=== PATIENT | male | born 1940 | race Caucasian/White ===

== ENCOUNTER 2022-11-22 15:37 | Inpatient (IN) ==
--- NOTE | 2022-11-22 16:56 | Emergency Department Note ---
Fall HPI General Chief Complaint: Fall Stated Complaint: fall Time Seen by Provider: 11/22/22 16:56 Source: family Mode of arrival: wheelchair Limitations: no limitations History of Present Illness HPI Narrative: Narrative: Patient is an 82-year-old male who presents to the emergency department today with complaint of left hip pain that he describes as throbbing and sharp pain. He was walking in his garage at home when he had a mechanical ground-level fall and tripped falling backwards onto a cement step. He has had pain to his hip since he fell at approximately 1430 today. He denies hitting his head, losing consciousness, or any pain in any other part of his body today. He has not had any numbness or tingling. He has not noticed any redness or bruising. Pain is aggravated with any weightbearing and he is not able to bear weight without significant pain. He currently rates his pain 4 out of 10 on a 0-10 numerical pain scale. He declines needing any pain medication upon arrival to the emergency department. Related Data Home Medications Medication Instructions Recorded Confirmed aspirin 325 mg tablet,delayed 325 mg PO QDAY 03/21/15 11/22/22 release cholecalciferol (vitamin D3) 125 5,000 unit PO QDAY 03/21/15 11/22/22 mcg (5,000 unit) tablet alpha lipioc acid 1 dose PO DAILY 06/01/15 11/22/22 coenzyme Q10 400 mg capsule 400 mg PO QDAY 06/01/15 11/22/22 vitamin B complex (B 1 tab-cap PO QDAY 11/22/15 11/22/22 Complex-Vitamin B12 tablet) gabapentin 100 mg capsule 300 mg PO TID 01/19/19 11/22/22 Custom Foot Orthotic 1 dose PRN PRN Pain 03/06/20 11/22/22 Tamsulosin 0.4 mg PO DAILY 03/06/20 11/22/22 omeprazole 40 mg capsule,delayed 40 mg PO QDAY PRN Indigestion 01/30/21 11/22/22 release Previous Rx's Medication Instructions Recorded amlodipine 10 mg tablet 10 mg PO QDAY #90 tabs 12/10/20 atorvastatin 20 mg tablet See Rx Instructions .Route 08/20/21 .COMPLEX #90 tabs acyclovir 200 mg capsule See Rx Instructions .Route 06/27/22 .COMPLEX #90 caps levothyroxine 150 mcg tablet 150 mcg PO QDAY #90 tabs 03/24/22 lisinopril 20 See Rx Instructions .Route 03/24/22 mg-hydrochlorothiazide 12.5 mg .COMPLEX #90 tabs tablet warfarin 4 mg tablet 4 mg PO QDAY #90 tabs 06/20/22 Allergies Allergy/AdvReac Type Severity Reaction Status Date / Time ciprofloxacin [From Cipro] Allergy Intermediate weakness, Verified 11/19/22 14:27 fatigue Review of Systems ROS ROS Narrative: Narrative: All systems ED: reviewed and negative except as stated. [facility] Narrative Patient History Narrative: Narrative: Medical/Surgical/Family History All Active Problems (Updated 11/22/22 @ 21:54 by OCTAVIANO Nickerson) Closed left hip fracture (Acute) Fracture, intertrochanteric, left femur (Acute) Medicare annual wellness visit, subsequent (Acute) Knee sprain (Acute) Minor head injury (Acute) Hematoma of left thigh (Acute) Traumatic hematoma of hand (Acute) Urinary tract infection (Acute) Urinary retention (Acute) [facility] current use of anticoagulant therapy (Chronic) Appendicitis (Acute) TIA (transient ischemic attack) (Acute) Occipital scalp laceration (Acute) Head injury due to trauma (Acute) Fall (Acute) Elevated Prostate Specific Antigen (PSA) (Chronic) Peripheral neuropathy (Chronic) Hypothyroidism (acquired) (Chronic) Hypertension, essential (Chronic) Hyperlipidemia (Chronic) Gastroesophageal reflux (Chronic) Medical History Appendicitis Diverticulosis of colon Elevated Prostate Specific Antigen (PSA) PSA from 01/26/15 is 6.13. Fall Gastroesophageal reflux Head injury due to trauma Hiatal hernia Hyperlipidemia Hypertension, essential well-controlled with blood pressures under 140/90 Hypothyroidism (acquired) well-controlled on 150 g of levothyroxine. 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 numbness TIA (transient ischemic attack) Surgical History History of colonoscopy (10/30/08) History of esophagogastroduodenoscopy (10/10/08) also on 01/08/2009 History of tonsillectomy S/P appendectomy (11/21/15) Family History Father Diabetes mellitus GF is unspecified family side Grandfather (paternal) Diabetes mellitus NOS Social History Smoking Status: Former smoker Alcohol Intake Frequency: does not drink Substance Use: does not use Exam Narrative Narrative: Narrative: General Limitations: no limitations General appearance: Present alert and in no apparent distress Head Head: Present atraumatic, normocephalic and normal inspection Eye Eye: Present normal appearance; Absent scleral icterus ENT ENT: Present normal oropharynx and mucous membranes moist Respiratory Respiratory: Absent respiratory distress or rales/crackles Extremities Extremities: Present normal capillary refill and other (Tenderness with palpation on the lateral side of left hip. Normal sensation to the lower extremity. No ecchymosis or erythema. Internal rotation without shortening. Pedal pulse 2+.); Absent cyanosis Skin Skin: Present warm (WNL), dry and normal color Course Vital Signs Vital signs: Vital Signs Temperature 97.7 F 11/22/22 15:38 Pulse Rate 62 11/22/22 15:38 Respiratory Rate 17 11/22/22 15:38 Blood Pressure 156/80 11/22/22 15:38 Pulse Oximetry (%) 95 11/22/22 15:38 Oxygen Delivery Method Room Air 11/22/22 15:38 Temperature 97.7 F 11/22/22 15:38 Pulse Rate 80 11/22/22 21:16 Respiratory Rate 17 11/22/22 15:38 Blood Pressure 111/71 11/22/22 21:16 Pulse Oximetry (%) 96 11/22/22 21:16 Oxygen Delivery Method Room Air 11/22/22 15:38 MDM MDM Narrative Medical decision making narrative: Narrative: Patient is an 82-year-old male who came into the emergency department today with left hip pain after he had a mechanical ground-level fall this afternoon at approximately 1500 while he was at home. X-ray obtained today that shows a left intertrochanteric fracture and has fairly good alignment. Patient was having pain and therefore proceeded with 0.5 mg of IV Dilaudid and 5 mg of methocarbamol as patient was having muscle spasm to the thigh causing increased pain. Patient was ordered a 500 mL NS bolus IV and the rate was changed to 125 an hour. Patient has past medical history of TIA and takes warfarin. Patient last ate at 8 AM where he had some breakfast cereal and drink 2 small sips of Pepsi around [address] Whitman is on-call for orthopedics and plans on surgical intervention with patient to treat the hip fracture. Currently there is no bed available for hospital admission to [facility] this evening. There is anticipation for hospital availability tomorrow morning where Dr. Whitman plans on performing surgery here at [facility] tomorrow morning after holding Coumadin dose and he requested hospitalist consultation. Dr. Goldstein is on for hospitalist service today and he did come down and evaluate patient today. Dr. Goldstein did accept patient for hospital admission today. Patient currently will be monitored here in the emergency department until tomorrow morning and plan on going to surgery in the morning and admission to [facility] after surgery. Lab Data 11/22/22 18:09 11/22/22 18:09 Labs: Lab Results 11/22/22 11/22/22 11/22/22 Range/Units 18:09 18:09 18:14 WBC 12.5 H (4.5-11.0) K/mcL RBC 3.83 L (4.63-6.08) M/mcL Hgb 12.6 L (13.7-17.5) g/dL Hct 37.3 L (40.1-51.0) % MCV 97.4 (80.0-100.0) fL MCH 32.9 (26.0-34.0) pg MCHC 33.8 (31.0-36.0) g/dL RDW 12.7 (11.5-14.5) % Plt Count 283 (140-440) K/mcL MPV 10.6 (8.8-12.5) fL Immature Gran % (Auto) 1.0 H (0.0-0.5) % Neut % (Auto) 85.9 H (38.0-78.0) % Lymph % (Auto) 5.6 L (15.5-49.0) % [place] % (Auto) 5.8 (1.0-12.0) % Eos % (Auto) 1.4 (0.0-7.0) % Baso % (Auto) 0.3 (0.0-2.0) % Lymph # (Auto) 0.70 L (1.50-4.80) K/mcL [place] # (Auto) 0.72 (0.10-0.90) K/mcL Eos # (Auto) 0.17 (0.00-0.70) K/mcL Baso # (Auto) 0.04 (0.00-0.30) K/mcL Immature Gran # 0.13 H (0.00-0.05) K/mcl Absolute Neutrophils 10.76 H (1.80-8.00) K/mcL POC PT 26.7 H (11.9-14.5) POC INR 2.3 H (0.8-1.2) Sodium 132 L (133-145) mmol/L Potassium 4.2 (3.3-5.1) mmol/L Chloride 98 (96-108) mmol/L Carbon Dioxide 22 (22-30) mmol/L Anion Gap 12.0 (8.0-16.0) BUN 35 H (8-23) mg/dL Creatinine 1.5 H (0.7-1.2) mg/dL GFR Calculation 42 Glucose 100 (70-105) mg/dL Calcium 9.1 (8.6-10.4) mg/dL Total Bilirubin 0.6 (0.1-1.0) mg/dL AST 15 (<40) U/L ALT 11 (<40) U/L Alkaline Phosphatase 86 (39-117) U/L Total Protein 6.9 (5.9-8.4) gm/dL Albumin 4.1 (3.2-5.2) gm/dL Globulin 2.8 (2.2-3.7) gm/dL Albumin/Globulin Ratio 1.5 (1.0-2.3) Radiology Data Radiology results reviewed: Yes I reviewed the patient's radiology results. Radiology results narrative: Ordering Physician:Chung Horne Date of Service:11/22/22 Procedure(s):XR hip LT comp 2VW HISTORY: Fell with left hip injury FINDINGS: There is an acute intertrochanteric fracture of the left proximal femur. Crosstable lateral view shows mild volar angulation. There is no significant impaction. The femoral neck and head are normal. Hip joint space is normal in width. Mild joint space narrowing is present in the right hip. IMPRESSION: Intertrochanteric fracture of the left hip Interpreted and Authenticated by: Simone Chung 11/22/22 EKG Data EKG #1: EKG attestation: Yes I reviewed and interpreted this EKG. and Yes There are no EKG findings of acute coronary syndrome EKG shows normal: sinus rhythm Rate: normal Discharge Plan Patient/Caregiver Discharge Instructions Pt seen by ENGROSSER/PA only: No Clinical Impression: Closed left hip fracture Patient Disposition: Xfer As Inpt ([facility]) Follow up with: Patric Juárez PA-C [Primary Care Provider] - Gavin Whitman MD [Physician] - Prescriptions: No Action amlodipine 10 mg tablet 10 mg PO QDAY Qty: 90 3RF atorvastatin 20 mg tablet See Rx Instructions .ROUTE .COMPLEX Qty: 90 3RF Dose Instruction: TAKE 1 TABLET BY MOUTH AT BEDTIME Rx Instructions: TAKE 1 TABLET BY MOUTH AT BEDTIME lisinopril-hydrochlorothiazide 20-12.5 mg tablet See Rx Instructions .ROUTE .COMPLEX Qty: 90 3RF Dose Instruction: TAKE 1 TABLET BY MOUTH DAILY Rx Instructions: TAKE 1 TABLET BY MOUTH DAILY levothyroxine 150 mcg tablet 150 mcg PO QDAY Qty: 90 3RF acyclovir 200 mg capsule See Rx Instructions .ROUTE .COMPLEX Qty: 90 3RF Dose Instruction: TAKE 1 CAPSULE BY MOUTH DAILY NEEDED FOR COLD SORES Rx Instructions: TAKE 1 CAPSULE BY MOUTH DAILY NEEDED FOR COLD SORES warfarin 4 mg tablet 4 mg PO QDAY Qty: 90 2RF Protocol: Dose Management Protocol Text: Patient Instructed to take: warfarin 4 mg (1 Tab) on , , , , , FR, SA Additional Instructions: per order of patric juárez aspirin 325 mg tablet,delayed release (DR/EC) 325 mg PO QDAY cholecalciferol (vitamin D3) 5,000 unit tablet 5,000 unit PO QDAY Rx Instructions: administer with meals vitamin B complex [B Complex-Vitamin B12] tablet 1 tab-cap PO QDAY coenzyme Q10 400 mg capsule 400 mg PO QDAY alpha lipioc acid 1 dose PO DAILY Patient Comments: 600mg daily gabapentin 100 mg capsule 300 mg PO TID omeprazole 40 mg capsule,delayed release(DR/EC) 40 mg PO QDAY PRN (Reason: Indigestion) Rx Instructions: swallow whole OR open & sprinkle contents over tbsp applesauce; swallow all immediately/do not chew Custom Foot Orthotic 1 dose PRN PRN (Reason: Pain) Rx Instructions: Please fit for custom foot orthotics Tamsulosin 0.4 mg PO DAILY
[2022-11-22] MEDS ORDERED: CYCLOBENZAPRINE 10 MG TABLET PO ONE ×2 (17:43→21:51)
--- NOTE | 2022-11-22 17:47 | XRay Report ---
HISTORY: Fell with left hip injury FINDINGS: There is an acute intertrochanteric fracture of the left proximal femur. Crosstable lateral view shows mild volar angulation. There is no significant impaction. The femoral neck and head are normal. Hip joint space is normal in width. Mild joint space narrowing is present in the right hip. IMPRESSION: Intertrochanteric fracture of the left hip Interpreted and Authenticated by: Simone Chung 11/22/22
[2022-11-22 18:18] LABS: POC INR 2.3 (0.8-1.2); POC Pro Time 26.7 (11.9-14.5)
[2022-11-22 18:38] LABS: Basophils # (Auto) 0.04 K/mcL (0.00-0.30); Basophils % (Auto) 0.3 % (0.0-2.0); Eosinophils # (Auto) 0.17 K/mcL (0.00-0.70); Eosinophils % (Auto) 1.4 % (0.0-7.0); Hematocrit 37.3 % (40.1-51.0); Hemoglobin 12.6 g/dL (13.7-17.5); Lymphocytes % (Auto) 5.6 % (15.5-49.0); Mean Cell Volume 97.4 fL (80.0-100.0); Mean Corpuscular HGB Conc 33.8 g/dL (31.0-36.0); Mean Platelet Volume 10.6 fL (8.8-12.5); Monocytes # (Auto) 0.72 K/mcL (0.10-0.90); Monocytes % (Auto) 5.8 % (1.0-12.0); Neutrophils % (Auto) 85.9 % (38.0-78.0); Platelet Count 283 K/mcL (140-440); RBC 3.83 M/mcL (4.63-6.08); Red Cell Distribution Width 12.7 % (11.5-14.5); WBC 12.5 K/mcL (4.5-11.0)
[2022-11-22 18:57] LABS: ALT/SGPT 11 U/L (<40); AST/SGOT 15 U/L (<40); Albumin 4.1 gm/dL (3.2-5.2); Albumin/Globulin Ratio 1.5 (1.0-2.3); Alkaline Phosphatase 86 U/L (39-117); Bilirubin,Total 0.6 mg/dL (0.1-1.0); Blood Urea Nitrogen 35 mg/dL (8-23); Calcium 9.1 mg/dL (8.6-10.4); Carbon Dioxide 22 mmol/L (22-30); Chloride 98 mmol/L (96-108); Globulin 2.8 gm/dL (2.2-3.7); Glomerular Filtration Rate 42; Glucose 100 mg/dL (70-105)
[2022-11-22] MEDS: 0.9 % SODIUM CHLORIDE 1,000 ML IV ONE ×2 (19:37→20:02)
[2022-11-22] MEDS: HYDROmorphone 0.5 MG/0.5 ML SYRINGE IV PRN ×2 (19:44→23:27)
[2022-11-22] MEDS ORDERED: 0.9 % SODIUM CHLORIDE 500 ML IV ONE (19:57)
--- NOTE | 2022-11-22 21:20 | Internal Med History&Physical ---
HPI History of Present Illness Patient information: Note initiated : 11/22/22 at 9:18 pm Service Date, if different from initiated Date: [] Patient: Timmy Kwon 82 y/o M admitted on for fall. Chief Complaint: [fall] Chief complaint: fall History of present illness: Mr. Kwon is a 82 year old M history of essential hypertensions, dyslipidemia, TIA on Coumadin, hypothyroidism, prostate cancer status post radia tion therapy, presenting with mechanical fall with left hip fracture. There is no prior history of mechanical fall. 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 He did not hit his head. He did not loss consciousness. He was complaining of severe left hip pain and was unable to get up by himself. He called his daughter who managed to get patient in the truck with assistance from other family member to our ED for further evaluations. Hip x-ray showing into trochanteric fracture of the left hip. Orthopedic surgeon Dr. Whitman was notified about the patient, and medical consultation is requested for pre-operative risk stratification and medical management. Constitutional Constitutional: Absent chills, excessive sweating, fatigue, fever(s) or weakness EENT Eyes: Absent blurry vision, change in vision, loss of vision or other visual disturbances Ears: Absent decreased hearing or tinnitus Nose, mouth and throat: Absent abnormal hearing, dry mouth, headache(s), nasal congestion or sore throat Cardiovascular Cardiovascular: Absent chest pain, chest pain at rest, edema, irregular heart rhythm or palpatations Respiratory Respiratory: Absent cough, dyspnea or wheezing Gastrointestinal Gastrointestinal: Absent abdominal pain, constipation, diarrhea, nausea or vomiting Musculoskeletal Musculoskeletal: Absent back pain, deformity, limited range of motion, muscle cramps, muscle weakness or numbness Additional comments: Left hip pain Integumentary Integumentary: Absent lesions, rash or wounds Neurological Neurological: Absent focal weakness, headache(s) or numbness Psychiatric Psychiatric: Absent anxiety, depression or hallucinations PFSH PFS All Active Problems (Updated 11/22/22 @ 21:22 by Jamal Goldstein MD) Fracture, intertrochanteric, left femur (Acute) Medicare annual wellness visit, subsequent (Acute) Knee sprain (Acute) Minor head injury (Acute) Hematoma of left thigh (Acute) Traumatic hematoma of hand (Acute) Urinary tract infection (Acute) Urinary retention (Acute) 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 Fall Gastroesophageal reflux Head injury due to trauma Hiatal hernia Hyperlipidemia Hypertension, essential well-controlled with blood pressures under 140/90 Hypothyroidism (acquired) well-controlled on 150 g of levothyroxine. 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 numbness TIA (transient ischemic attack) Surgical History History of colonoscopy (10/30/08) History of esophagogastroduodenoscopy (10/10/08) also on 01/08/2009 History of tonsillectomy S/P appendectomy (11/21/15) Family History Father Diabetes mellitus GF is unspecified family side Grandfather (paternal) Diabetes mellitus NOS Social History adopted: No caregiver/support person: No foster care: No household members: alone housing: house lives independently: Yes marital status: education level: college service: No group home: No occupational status: retired pets and animals: Yes pets and animals: dog(s), horse(s) and other details: goat hx recent travel: No sexually active: Yes well-balanced diet: daily or most days physical activity: walking, aerobics and weight training smoking status: Former smoker alcohol intake frequency: does not drink substance use type: does not use special jemima needs: No victim of physical abuse: No victim of emotional abuse: No victim of sexual abuse: No MEDS/ALLERGIES Home Medications and Allergies Home Medications Medication Instructions Recorded Confirmed Type aspirin 325 mg tablet,delayed 325 mg PO QDAY 03/21/15 11/22/22 History release cholecalciferol (vitamin D3) 125 5,000 unit PO QDAY 03/21/15 11/22/22 History mcg (5,000 unit) tablet alpha lipioc acid 1 dose PO DAILY 06/01/15 11/22/22 History coenzyme Q10 400 mg capsule 400 mg PO QDAY 06/01/15 11/22/22 History vitamin B complex (B 1 tab-cap PO QDAY 11/22/15 11/22/22 History Complex-Vitamin B12 tablet) gabapentin 100 mg capsule 300 mg PO TID 01/19/19 11/22/22 History Custom Foot Orthotic 1 dose PRN PRN Pain 03/06/20 11/22/22 History Tamsulosin 0.4 mg PO DAILY 03/06/20 11/22/22 History amlodipine 10 mg tablet 10 mg PO QDAY #90 tabs 12/10/20 11/22/22 Rx omeprazole 40 mg capsule,delayed 40 mg PO QDAY PRN Indigestion 01/30/21 11/22/22 History release atorvastatin 20 mg tablet See Rx Instructions .Route 08/20/21 11/22/22 Rx .COMPLEX #90 tabs acyclovir 200 mg capsule See Rx Instructions .Route 03/24/22 11/22/22 Rx .COMPLEX #90 caps levothyroxine 150 mcg tablet 150 mcg PO QDAY #90 tabs 03/24/22 11/22/22 Rx lisinopril 20 See Rx Instructions .Route 03/24/22 11/22/22 Rx mg-hydrochlorothiazide 12.5 mg .COMPLEX #90 tabs tablet warfarin 4 mg tablet 4 mg PO QDAY #90 tabs 06/20/22 11/22/22 Rx Allergies Allergy/AdvReac Type Severity Reaction Status Date / Time ciprofloxacin [From Cipro] Allergy Intermediate weakness, Verified 11/19/22 14:27 fatigue EXAM Constitutional Vitals: Temp Pulse Resp BP Pulse Ox O2 Del Method 36.5 C 80 17 111/71 96 Room Air 11/22/22 15:38 11/22/22 21:16 11/22/22 15:38 11/22/22 21:16 11/22/22 21:16 11/22/22 15:38 General appearance: cooperative and no acute distress Head Head exam: Present atraumatic and normocephalic Eye Eye exam: Present EOMI and PERRL ENT ENT exam: Present mucous membranes moist, normal exam and normal external ear exam Neck Neck exam: Present normal inspection; Absent lymphadenopathy, tenderness or thyromegaly Respiratory Respiratory exam: Absent accessory muscle use, respiratory distress or wheezes Cardiovascular Cardiovascular exam: Present normal rate and rhythm; Absent JVD GI/Abdominal GI/Abdominal exam: Present normal bowel sounds and soft; Absent organomegaly or tenderness Rectal Rectal exam: Present deferred Extremities Exam Extremities exam: Present normal capillary refill and tenderness; Absent full ROM or normal inspection Additional comments: Left hip active and passive ROMs limited by pain Neurological Exam Neurological exam: Present alert, CN II-XII intact and oriented X3; Absent motor sensory deficit Psychiatric Psychiatric exam: Present normal affect and normal mood; Absent anxious or depressed Skin Skin exam: Present dry and intact DATA Data Completed and Pending Labs: Labs from last 24 hours 11/22/22 11/22/22 11/22/22 18:14 18:09 18:09 WBC 12.5 H RBC 3.83 L Hgb 12.6 L Hct 37.3 L MCV 97.4 MCH 32.9 MCHC 33.8 RDW 12.7 Plt Count 283 MPV 10.6 Immature Gran % (Auto) 1.0 H Neut % (Auto) 85.9 H Lymph % (Auto) 5.6 L [place] % (Auto) 5.8 Eos % (Auto) 1.4 Baso % (Auto) 0.3 Lymph # (Auto) 0.70 L [place] # (Auto) 0.72 Eos # (Auto) 0.17 Baso # (Auto) 0.04 Immature Gran # 0.13 H Absolute Neutrophils 10.76 H POC PT 26.7 H POC INR 2.3 H Sodium 132 L Potassium 4.2 Chloride 98 Carbon Dioxide 22 Anion Gap 12.0 BUN 35 H Creatinine 1.5 H GFR Calculation 42 Glucose 100 Calcium 9.1 Total Bilirubin 0.6 AST 15 ALT 11 Alkaline Phosphatase 86 Total Protein 6.9 Albumin 4.1 Globulin 2.8 Albumin/Globulin Ratio 1.5 A/P Assessment and plan (1) Fracture, intertrochanteric, left femur: Status: Acute (2) Hypothyroidism (acquired): Status: Chronic Comment: well-controlled on 150 g of levothyroxine. (3) Hypertension, essential: Status: Chronic Comment: well-controlled with blood pressures under 140/90 (4) Hyperlipidemia: Status: Chronic Qualifiers: Hyperlipidemia type: mixed hyperlipidemia Qualified Code(s): E78.2 - Mixed hyperlipidemia (5) TIA (transient ischemic attack): Status: Acute Qualifiers: Transient cerebral ischemia type: unspecified Qualified Code(s): G45.9 - Transient cerebral ischemic attack, unspecified (6) [facility] current use of anticoagulant therapy: Status: Chronic Narrative A/P Narrative: Assessment and Plans: 1. Left intertrochanteric hip fracture: Inpatient med surg Dr. Rivera to perform surgical fixaton on 11/23 NPO after midnight with IV fluid Hold Aspirin Hold Coumadin; repeat PT/INR in the morning Bedrest Tylenol Oxycodone Dilaudid Physical therapy 2. Essential hypertension: Lisinopril Amlodipine 3. Dyslipidemia: Lipitor 4. Hypothyroidism: Continue thyroid replacement therapy 5. h/o TIA: Hold Aspirin Hold Coumadin; repeat PT/INR in the morning Continue Lipitor GI ppx: not currently indicated DVT ppx: SCDs Code status: Full Prognosis: guarded Disposition: inpatient med surg; PT Time Spent With Patient Time: Total time spent is greater than 50% in coordination of care (as documented) at patient's floor/unit and/or counseling patient: Initial: Total time with patient: 55 - 74 minutes
[2022-11-22 21:59] LABS: Appearance,Urine CLOUDY (Clear); Bacteria,Urine FEW /hpf (0); Bilirubin,Urine Negative (Negative); Color,Urine YELLOW; Culture Indicated,Urine yes; Glucose,Urine (UA) Negative (Negative); Ketones,Urine Negative (Negative); Leukocyte Esterase,Urine 75 /uL (Negative); Mucus,Urine FEW /hpf; Nitrate,Urine Negative (Negative); Protein,Urine Negative (Negative); Specific Gravity,Urine 1.013 (1.000-1.035); Urine RBC 41 /hpf (0-3); Urine Squamous Epithelial Cell 0 /hpf (0-4); Urine WBC 22 /hpf (0-4); Urobilinogen,Urine Negative
[2022-11-23] MEDS: 0.9 % SODIUM CHLORIDE 1,000 ML IV SCH ×5 (01:10→20:48)
[2022-11-23] MEDS: HYDROmorphone 0.5 MG/0.5 ML SYRINGE IV PRN (06:58)
[2022-11-23 07:29] LABS: Prothrombin Time 23.5 sec (11.9-14.5)
[2022-11-23] MEDS ORDERED: OMEPRAZOLE 20 MG CAPSULE PO PRN (07:31)
[2022-11-23] MEDS ORDERED: ceFAZolin 1 GM VIAL ONE ×3 (07:59→23:33)
[2022-11-23] MEDS ORDERED: ceFAZolin 2 GM in DEXTROSE 5% IN WATER 50 ML IV SCH ×2 (08:00→09:00)
[2022-11-23] MEDS ORDERED: ceFAZolin 1 GM VIAL IV ONE (08:09)
[2022-11-23] MEDS ORDERED: DEXAMETHASONE 10 MG/ML VIAL ONE (08:15)
[2022-11-23] MEDS ORDERED: TRANEXAMIC ACID 1,000 MG/10 ML VIAL ONE (08:15)
[2022-11-23] MEDS ORDERED: ePHEDrine 50 MG/5 ML SYRINGE (ANEST) IV ONE (08:15)
[2022-11-23] MEDS ORDERED: LIDOCAINE HCL/PF 100 MG/5 ML SYRINGE IV ONE (08:15)
[2022-11-23] MEDS ORDERED: MAGNESIUM SULFATE 2 GM/50 ML BAG IV ONE (08:15)
[2022-11-23] MEDS ORDERED: ONDANSETRON 4 MG/2 ML VIAL ONE (08:15)
[2022-11-23] MEDS ORDERED: KETAMINE 50 MG/ML Syringe (ANEST) IV ONE (08:15)
[2022-11-23] MEDS ORDERED: PHENYLephrine 1 MG/10 ML SYRINGE (ANEST) ONE (08:15)
[2022-11-23] MEDS ORDERED: PROPOFOL 200 MG/20 ML VIAL IV ONE (08:15)
[2022-11-23] MEDS ORDERED: LACTATED RINGERS 250 ML IV PRN (08:48)
[2022-11-23] MEDS ORDERED: diphenhydrAMINE 50 MG/ML VIAL IV PRN (08:48)
[2022-11-23] MEDS ORDERED: IPRATROPIUM/ALBUTEROL 3 ML AMPUL.NEB NEB PRN ×2 (08:48→11:06)
[2022-11-23] MEDS ORDERED: ACETAMINOPHEN 1,000 MG/100 ML BAG IV ONE (08:48)
[2022-11-23] MEDS ORDERED: fentaNYL 100 MCG/2 ML VIAL IV PRN (08:48)
[2022-11-23] MEDS ORDERED: NALOXONE HCL 0.4 MG/ML VIAL IV PRN (08:48)
[2022-11-23] MEDS ORDERED: PROMETHAZINE 25 MG/ML VIAL IV PRN (08:48)
[2022-11-23] MEDS ORDERED: METHOCARBAMOL 1,000 MG/10 ML VIAL IV PRN (08:48)
[2022-11-23] MEDS ORDERED: ONDANSETRON 4 MG/2 ML VIAL IV PRN ×2 (08:48→11:06)
[2022-11-23] MEDS ORDERED: morphine 4 MG/ML VIAL IV PRN (08:56)
[2022-11-23] MEDS ORDERED: HYDROCODONE/APAP 7.5/325MG TABLET PO PRN (08:56)
[2022-11-23] MEDS ORDERED: FLEETS ADULT ENEMA PR PRN (08:56)
[2022-11-23] MEDS ORDERED: BISACODYL 10 MG SUPP.RECT PR PRN (08:56)
[2022-11-23] MEDS ORDERED: MAGNESIUM HYDROXIDE 30 ML ORAL.SUSP PO PRN (08:56)
[2022-11-23] MEDS ORDERED: POLYETHYLENE GLYCOL 3350 17 GM PACKET PO PRN (08:56)
--- NOTE | 2022-11-23 08:56 | Brief Operative Note ---
Brief Operative Note Date of procedure: 11/23/22 Pre-op diagnosis: Left intertrochanteric hip fracture Post-op diagnosis: same Procedure: Open treatment internal fixation of left intertrochanteric hip fracture w intramedullary fixation Grafts/Implants: Yes (125 deg short gamma nail, 115mm lag screw) Anesthesia: GLMA Findings: intertrochanteric fracture Complications: none Surgeon: Gavin Whitman Wood Experimental Mechanic: Samuel Mac Estimated blood loss (cc): 100 Specimens Removed/Pathology: none sent Condition: stable Disposition: PACU
[2022-11-23] MEDS ORDERED: COENZYME Q10 400 MG PO SCH (09:00)
[2022-11-23] MEDS ORDERED: LACTATED RINGERS 1,000 ML IV SCH (09:00)
[2022-11-23] MEDS ORDERED: [UNRECOGNIZED DRUG - OTHER] PO SCH (09:00)
--- NOTE | 2022-11-23 09:04 | XRay Report ---
HISTORY: Preop for repair of left hip fracture FINDINGS: There is a small parenchymal scar at the left costophrenic sulcus. The lungs are otherwise clear, but incompletely expanded. There is no pneumonia, mass or congestive heart failure. The heart is borderline enlarged but magnified by portable technique and suboptimal inspiration. Aorta is mildly tortuous. No fracture is detected. IMPRESSION: Suboptimal inspiration with small scar at the left lung base Interpreted and Authenticated by: Simone Chung 11/23/22
--- NOTE | 2022-11-23 09:48 | Internal Med Progress Note ---
SUBJECTIVE Subjective Patient information: Note initiated : 11/23/22 at 9:45 am Service Date, if different from initiated Date: [] Patient: Timmy Kwon 82 y/o M admitted on for fall. Chief Complaint: [] Interval history: Mr. Kwon is a 82 year old M history of essential hypertensions, dyslipidemia, TIA on Coumadin, hypothyroidism, prostate cancer status post radiation therapy, presenting with mechanical fall with left hip fracture. There is no prior history of mechanical fall. 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 He did not hit his head. He did not loss consciousness. He was complaining of severe left hip pain and was unable to get up by himself. He called his daughter who managed to get patient in the truck with assistance from other family member to our ED for further evaluations. Hip x-ray showing into trochanteric fracture of the left hip. Orthopedic surgeon Dr. Whitman was notified about the patient, and medical consultation is requested for pre-operative risk stratification and medical management. 11/23: Surgery: Open treatment internal fixation of left intertrochanteric hip fracture w intramedullary fixation by Dr. Rivera this morning. Post operative care as per surgical team. Physical therapy evaluation and treatment for placement planning. Constitutional Vitals: Vital Signs Temp Pulse Resp BP Pulse Ox O2 Del Method O2 Flow Rate 37.1 C 62 15 106/75 97 Simple Mask 4 11/23/22 09:33 11/23/22 09:20 11/23/22 09:20 11/23/22 09:20 11/23/22 09:20 11/23/22 09:20 11/23/22 09:33 Period Temp Pulse Resp BP Sys/Sanders Pulse Ox O2 Del Method O2 Flow Rate Last 24 Hr 36.2 C-37.1 C 62-84 14-18 86-156/60-112 89-98 Nasal Cannula- Simple Mask 4-6 Intake and Output 11/22/22 11/23/22 11/23/22 19:59 03:59 11:59 Intake Total 500 100 Balance 500 100 Weight 90.718 kg Intake & Output: Intake & Output 11/22/22 11/23/22 11/23/22 19:59 03:59 11:59 Intake Total 500 100 Balance 500 100 Weight 90.718 kg Intake: IV 500 100 Sodium Chloride 0.9% 500 ml @ 500 Wide Open IV BOLUS ONE Rx#: [id number] Other: Urine Appearance Uretheral (Bravo) Clear Urine Color Uretheral (Bravo) Yellow Pale Head Head exam: Present atraumatic and normal inspection Eye Eye exam: Present normal appearance ENT ENT exam: Present mucous membranes moist, normal exam and normal external ear exam Neck Neck exam: Present normal inspection Respiratory Respiratory exam: Present normal respiratory exam Cardiovascular Cardiovascular exam: Present normal rate and rhythm GI/Abdominal GI/Abdominal exam: Present normal bowel sounds Extremities Exam Extremities exam: Present tenderness; Absent full ROM or normal inspection Back Exam Back exam: Present normal inspection Neurological Exam Neurological exam: Present alert and oriented X3 Skin Skin exam: Present intact and warm OBJ DATA Labs 11/22/22 18:09 11/22/22 18:09 Labs: Abnormal Lab Results 11/23/22 11/22/22 11/22/22 05:03 21:19 18:14 WBC RBC Hgb Hct Immature Gran % (Auto) Neut % (Auto) Lymph % (Auto) Lymph # (Auto) Immature Gran # Absolute Neutrophils POC PT 26.7 H PT 23.5 H POC INR 2.3 H INR 2.0 H Sodium BUN Creatinine Urine Appearance Cloudy A Ur Leukocyte Esterase 75 A Urine RBC 41 H Urine WBC 22 H Urine Bacteria Few A Urine Mucus Few A 11/22/22 11/22/22 18:09 18:09 WBC 12.5 H RBC 3.83 L Hgb 12.6 L Hct 37.3 L Immature Gran % (Auto) 1.0 H Neut % (Auto) 85.9 H Lymph % (Auto) 5.6 L Lymph # (Auto) 0.70 L Immature Gran # 0.13 H Absolute Neutrophils 10.76 H POC PT PT POC INR INR Sodium 132 L BUN 35 H Creatinine 1.5 H Urine Appearance Ur Leukocyte Esterase Urine RBC Urine WBC Urine Bacteria Urine Mucus Meds: Medications Hydrocodone Bitart/Acetaminophen (Hydrocodone/Apap 7.5/325mg Tablet) 0 tab PO Q4HP PRN; Protocol PRN Reason: Per Pain Protocol Albuterol/Ipratropium (Ipratropium/Albuterol 3 Ml Ampul.Neb) 3 ml NEB ONCE PRN PRN Reason: Wheezing Stop: 11/23/22 10:48 Amlodipine Besylate (Amlodipine 10 Mg Tablet) 10 mg PO QDAY MIGUEL A Atorvastatin Calcium (Atorvastatin 20 Mg Tablet) 20 mg PO HS MIGUEL A Bisacodyl (Bisacodyl 10 Mg Supp.Rect) 10 mg AL Q2-3DAYS PRN PRN Reason: Constipation Diphenhydramine HCl (Diphenhydramine 50 Mg/Ml Vial) 25 mg IV ONCE PRN PRN Reason: ITCH Stop: 11/23/22 10:49 Docusate Sodium (Docusate Sodium 100 Mg Capsule) 100 mg PO BID MIGUEL A Fentanyl (Fentanyl 100 Mcg/2 Ml Vial) 25 mcg IV Q2M PRN PRN Reason: Pain Stop: 11/23/22 10:48 Gabapentin (Gabapentin 300 Mg Capsule) 300 mg PO TID [facility] Hydromorphone HCl (Hydromorphone 0.5 Mg/0.5 Ml Syringe) 0.5 mg IV Q15MIN PRN; Protocol PRN Reason: Per Pain Protocol Last Admin: 11/23/22 06:58 Dose: 0.5 mg Sodium Chloride (Sodium Chloride 0.9%) 1,000 mls @ 100 mls/hr IV .Q10H [facility] Last Admin: 11/23/22 06:57 Dose: Not Given Lactated Ringer's (Lactated Ringers) 1,000 mls @ 0 mls/hr IV PRN PRN PRN Reason: Hypovolemia Stop: 11/23/22 10:48 Lactated Ringer's (Lactated Ringers) 1,000 mls @ 20 mls/hr IV .Q24H [facility]IGUEL A Stop: 11/23/22 10:48 Cefazolin Sodium 2 gm/ (Dextrose) 50 mls @ 100 mls/hr IV Q8H [facility]IG[facility]EL A Stop: 11/24/22 00:29 Levothyroxine Sodium (Levothyroxine 150 Mcg Tablet) 150 mcg PO ACB [facility] Lisinopril (Lisinopril 20 Mg Tablet) 20 mg PO DAILY [facility] Magnesium Hydroxide (Magnesium Hydroxide 30 Ml Oral.Susp) 30 ml PO BIDP PRN PRN Reason: Constipation Methocarbamol (Methocarbamol 1,000 Mg/10 Ml Vial) 750 mg IV ONCE PRN PRN Reason: Muscle Spasm Stop: 11/23/22 10:49 Last Admin: 11/23/22 09:38 Dose: 750 mg Morphine Sulfate (Morphine 4 Mg/Ml Vial) 0 mg IV Q1HP PRN; Protocol PRN Reason: Per Pain Protocol Naloxone HCl (Naloxone Hcl 0.4 Mg/Ml Vial) 0.1 mg IV Q2MIN PRN PRN Reason: Opiate Reversal Stop: 11/23/22 10:48 Omeprazole (Omeprazole 20 Mg Capsule) 40 mg PO DAILYP PRN PRN Reason: Indigestion Ondansetron HCl (Ondansetron 4 Mg/2 Ml Vial) 4 mg IV ONCE PRN PRN Reason: Nausea And Vomiting Stop: 11/23/22 10:48 Polyethylene Glycol (Polyethylene Glycol 3350 17 Gm Packet) 17 gm PO DAILYP PRN PRN Reason: Constipation Promethazine HCl (Promethazine 25 Mg/Ml Vial) 6.25 mg IV Q15M PRN PRN Reason: Nausea And Vomiting Stop: 11/23/22 10:48 Senna (Sennosides 1 Tablet) 2 tab PO HS [facility] A Sodium Biphosphate/Sodium Phosphate (Fleets Adult Enema) 1 dose AL Q3-4DAYS PRN PRN Reason: Constipation Sodium Chloride (0.9 % Sodium Chloride 10 Ml Syringe) 10 ml IV Q12 [facility] Tamsulosin HCl (Tamsulosin 0.4 Mg Capsule) 0.4 mg PO DAILY [facility] Vitamin B Complex (Vitamin B Complex 1 Capsule) 1 cap PO DAILY [facility] A Vitamin D (Vitamin D3 125 Mcg Tablet) 125 mcg PO DAILY [facility] A A/P Assessment and plan (1) Fracture, intertrochanteric, left femur: Status: Acute (2) Hypothyroidism (acquired): Status: Chronic Comment: well-controlled on 150 g of levothyroxine. 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 Left intertrochanteric hip fracture: Inpatient med surg Surgery: Open treatment internal fixation of left intertrochanteric hip fracture w intramedullary fixation by Dr. Rivera this morning Hold Aspirin Hold Coumadin; repeat PT/INR in the morning Bedrest Tylenol Oxycodone Dilaudid Physical therapy 2. Essential hypertension: Lisinopril Amlodipine 3. Dyslipidemia: Lipitor 4. Hypothyroidism: Continue thyroid replacement therapy 5. h/o TIA: Hold Aspirin Hold Coumadin; repeat PT/INR in the morning Continue Lipitor GI ppx: not currently indicated DVT ppx: SCDs Code status: Full Prognosis: Stable Disposition: inpatient med surg; PT Time Spent With Patient Time: Total time spent is greater than 50% in coordination of care (as documented) at patient's floor/unit and/or counseling patient: Subsequent: Total time with patient: 35 - 49 minutes
--- NOTE | 2022-11-23 09:51 | XRay Report ---
HISTORY: FINDINGS: IMPRESSION: 0.7 minutes of fluoroscopy time was used. Interpreted and Authenticated by: Simone Chung 11/23/22
[2022-11-23] MEDS ORDERED: DOCUSATE SODIUM 100 MG CAPSULE PO SCH (11:06)
[2022-11-23] MEDS ORDERED: oxyCODONE HCL 5 MG TABLET PO PRN (11:06)
[2022-11-23] MEDS ORDERED: ACETAMINOPHEN 325 MG TABLET PO PRN (11:06)
[2022-11-23] MEDS ORDERED: HYDROmorphone 1 MG/ML SYRINGE IV PRN (11:06)
[2022-11-23] MEDS: ATORVASTATIN 20 MG TABLET PO SCH ×2 (11:09→20:46)
[2022-11-23 12:10] LABS: Basophils # (Auto) 0.03 K/mcL (0.00-0.30); Basophils % (Auto) 0.2 % (0.0-2.0); Eosinophils # (Auto) 0.02 K/mcL (0.00-0.70); Eosinophils % (Auto) 0.1 % (0.0-7.0); Hematocrit 34.5 % (40.1-51.0); Hemoglobin 11.1 g/dL (13.7-17.5); Lymphocytes # (Auto) 0.47 K/mcL (1.50-4.80); Lymphocytes % (Auto) 2.9 % (15.5-49.0); Mean Cell Volume 100.3 fL (80.0-100.0); Mean Corpuscular HGB Conc 32.2 g/dL (31.0-36.0); Mean Platelet Volume 10.7 fL (8.8-12.5); Monocytes # (Auto) 0.54 K/mcL (0.10-0.90); Monocytes % (Auto) 3.4 % (1.0-12.0); Neutrophils % (Auto) 92.7 % (38.0-78.0); Platelet Count 254 K/mcL (140-440); RBC 3.44 M/mcL (4.63-6.08); Red Cell Distribution Width 12.8 % (11.5-14.5); WBC 16.1 K/mcL (4.5-11.0)
[2022-11-23 12:37] LABS: Blood Urea Nitrogen 42 mg/dL (8-23); Calcium 8.5 mg/dL (8.6-10.4); Carbon Dioxide 18 mmol/L (22-30); Chloride 101 mmol/L (96-108); Glomerular Filtration Rate 25; Glucose 120 mg/dL (70-105)
[2022-11-23] MEDS: DOCUSATE SODIUM 100 MG CAPSULE PO SCH ×2 (13:46→20:47)
[2022-11-23] MEDS: TAMSULOSIN 0.4 MG CAPSULE PO SCH (13:47)
[2022-11-23] MEDS: GABAPENTIN 300 MG CAPSULE PO SCH ×3 (13:47→20:46)
[2022-11-23] MEDS: 0.9 % SODIUM CHLORIDE 10 ML SYRINGE IV SCH ×5 (13:48→21:12)
[2022-11-23] MEDS: amLODIPine 10 MG TABLET PO SCH (13:48)
[2022-11-23] MEDS: LEVOTHYROXINE 150 MCG TABLET PO SCH (13:49)
[2022-11-23] MEDS: VITAMIN D3 125 MCG TABLET PO SCH (13:49)
[2022-11-23] MEDS: VITAMIN B COMPLEX 1 CAPSULE PO SCH (13:49)
[2022-11-23] MEDS: LISINOPRIL 20 MG TABLET PO SCH (13:50)
--- NOTE | 2022-11-23 18:13 | Consultation ---
DATE OF CONSULTATION: 11/23/2022 REQUESTING PHYSICIAN: Dr Jamal Goldstein. CONSULTING PHYSICIAN: Gavin Whitman MD REASON FOR CONSULTATION: Left hip fracture. HISTORY OF PRESENT ILLNESS: This is an 82-year-old male with multiple medical comorbidities who sustained a mechanical fall from ground level height, striking his left hip, having severe pain. He was unable to get up or bear weight. Denied loss of consciousness. He felt his fall was due to neuropathy in his feet. He was taken to the Emergency Department. X-rays showed an intertrochanteric hip fracture. PAST MEDICAL HISTORY: Positive for gastroesophageal reflux, hyperlipidemia, hypertension, hypothyroidism, neuropathy, stroke and benign prostatic hypertrophy. MEDICATIONS: List can be reviewed in the chart. ALLERGIES: CIPROFLOXACIN. SOCIAL HISTORY: Former smoker. No alcohol use. No illicit drug use. FAMILY HISTORY: Positive for father with diabetes and grandfather with diabetes. REVIEW SYSTEMS: Negative except per the HPI. PHYSICAL EXAMINATION: VITAL SIGNS: Upon presentation to the ER was temperature 36.5 Celsius, pulse 80, respirations 17, blood pressure 111/71, pulse ox 96% on room air. GENERAL APPEARANCE: He appears his stated age, in no acute distress. He is oriented to person and place. Mood and affect are appropriate. HEART: Regular. LUNGS: Clear. EXTREMITIES: The left lower extremity reveals a shortening with some malrotation. Pedal pulses are not easily palpable; however, cap refill is brisk and skin is warm. DIAGNOSTIC DATA: X-rays were reviewed, which shows a left intertrochanteric hip fracture. IMPRESSION: Left closed intertrochanteric hip fracture in an 82-year-old male who was previously ambulatory. PLAN: I recommend proceeding with open treatment and internal fixation of the left intertrochanteric hip fracture with intramedullary fixation. He is anticoagulated and INR is 2.0, however, I feel surgical delay more than a day increase his risks and so I would recommend we proceed as this is a fairly quick operation. Risks of surgery include, but not limited to, bleeding, possibly requiring transfusion; infection; injury to nerves, blood vessels, other surrounding structures, anesthetic risks; nonunion or malunion of the fracture; failure of hardware fixation; possibility of needing further surgery, DVT and pulmonary embolus risks. He understands and wished to proceed. SUJATHA:mallika Job ID: [id number] Doc ID: [id number] Gavin Whitman MD
[2022-11-23] MEDS: ceFAZolin 2 GM in DEXTROSE 5% IN WATER 50 ML IV SCH ×2 (18:22→23:45)
[2022-11-23] MEDS: SENNOSIDES 1 TABLET PO SCH (20:46)
[2022-11-23] MEDS ORDERED: traZODone HCL 50 MG TABLET PO PRN (21:00)
[2022-11-23] MEDS ORDERED: SENNOSIDES 1 TABLET PO SCH (21:00)
[2022-11-24] MEDS: 0.9 % SODIUM CHLORIDE 1,000 ML IV SCH ×2 (01:51→06:09)
[2022-11-24] MEDS: 0.9 % SODIUM CHLORIDE 10 ML SYRINGE IV SCH ×3 (06:11→14:53)
[2022-11-24 06:50] LABS: Hemoglobin 10.2 g/dL (13.7-17.5)
--- NOTE | 2022-11-24 07:19 | EKG ---
[facility] Test Date: 2022-11-22 Pat Name: Timmy Kwon Department: ED Room: Gender: Male Procurement Consultant: GORGE : 1940 Requested By: Chung Horne Order Number: [id number] Reading MD: Brenton Tucker Measurements Intervals [place] Rate: 76 P: [place]: QRS: -35 QRSD: 120 T: 19 QT: 423 QTc: 476 Interpretive Statements Sinus rhythm Ventricular premature complex IVCD Electronically Signed On 11-24-2022 7:19:21 PST by Brenton Tucker /store/M0/[id number]
--- NOTE | 2022-11-24 07:48 | Operative Note ---
DATE OF OPERATION: 11/23/2022 DATE OF PROCEDURE: 11/23/2022 PREOPERATIVE DIAGNOSIS: Left closed intertrochanteric hip fracture. POSTOPERATIVE DIAGNOSIS: Left closed intertrochanteric hip fracture. PROCEDURE PERFORMED: Open treatment and internal fixation of the left closed intertrochanteric hip fracture with intramedullary sameera fixation using a short gamma nail, 125-degree angle with a 115 mm lag screw. SURGEON: Gavin Whitman M.D. RECOVERY COORDINATOR: Samuel Mac PA-C. This providers expertise and technical skill were required throughout the case. The PA assisted with preoperative coordination, intraoperative retraction, wound closure, and dressing and splint application, as well as postoperative documentation and care coordination. ANESTHESIA: General. DRAINS: None. SPECIMENS: None. COMPLICATIONS: None. ESTIMATED BLOOD LOSS: 100 mL. POSTOPERATIVE CONDITION: Stable. INDICATIONS FOR SURGERY: This is an 82-year-old male who last night, sustained a ground level fall, striking his left hip, had severe pain and inability to bear weight. He was taken to the Emergency Department and x-rays showed an intertrochanteric hip fracture. FINDINGS AT SURGERY: Left intertrochanteric hip fracture. Post-fixation showed fracture reduction satisfactory with hardware in good position. PROCEDURE IN DETAIL: The patient had been seen preoperatively and informed consent had been obtained after discussion of risks and benefits of surgery. Risks including, but not limited to, bleeding; infection; injury to nerves, blood vessels, other surrounding structures, anesthetic risks; nonunion or malunion of the fracture; failure of hardware fixation, DVT, pulmonary embolus risks; and the possibility of needing further surgery. He understood and wished to proceed. Correct operative site was marked in the preoperative holding, then the patient was taken to the operating room. General anesthesia induced. He was carefully positioned on the fracture table and the left lower extremity was placed in some traction with internal rotation. Right lower extremity was flexed and abducted out of the way and carefully padded. Fluoroscopy was brought in to verify reduction in both views, which was good. We then prepped and draped the left hip and lower extremity in normal sterile fashion. Timeout was performed verifying patient name, operative site, and plan. Incision was made in line with the femur just proximal to greater trochanter with a scalpel through skin and subcutaneous tissue. Hemostasis obtained with Bovie cautery. We then incised with the Bovie through the IT band. Blunt finger dissection was used to dissect down onto the tip of the trochanter. A threaded guide pin was placed on the tip of the trochanter and checked with fluoroscopy and position. I then advanced this down the shaft of the femur. We checked the lateral view. This was posterior, so I went ahead and used the honeycomb to place a second pin more anterior in the same trajectory. We then removed the first pin and checked x-ray, which was central on the lateral view and in good position on AP. We then used the opening reamer with a tissue protector to ream over the pin and then a 125 nail was advanced over the pin and the guide pin was removed. We positioned so the lag screw would be central in the neck and then a stab incision was made lateral. The sleeve was advanced through the aiming arm. We drilled the lateral cortex and then a threaded guide pin was passed up the femoral neck part way. We then checked with fluoroscopy, made some readjustment to get it central on the lateral view and then advanced this up until we were less than a centimeter from the articular surface on both AP and lateral views. We were central in the head and neck on AP and lateral views. A ruler was then used to measure our length, which was approximately 115 mm. A 115 lag screw was opened while we used the step reamer. We then advanced the lag screw until we were less than 1 cm from the articular surface on both views and were in good bone. I then advanced the proximal locking screw and advanced until it was locked. We then backed off a half turn and then I used the compression device to compress checking on fluoroscopy. Once this was done, we went ahead and removed the screwdriver and guide pin from the lag screw. The sleeves for the distal interlocking screws were passed through the static slot. A stab incision was made and then the sleeves were taken down to bone. We drilled bicortically, which was a very good bone distally and measured a 42 mm screw, which was opened. This was advanced until the head was seated against the cortex and then a final fluoro images were taken, AP and lateral, proximal and distal. Images were saved. We irrigated with IrriSept, after removing the jig. After a minute, we irrigated with saline. A #1 Vicryl was used to close a running stitch for the IT band proximally, 2-0 Monocryl was used for subcutaneous for all incisions and then pratibha for skin. Xeroform and sterile dressings were applied. The patient was then awakened, extubated, and transferred to recovery in stable condition. SUJATHA:leanna Job ID: [id number] Doc ID: [id number] Gavin Whitman MD
[2022-11-24] MEDS: LEVOTHYROXINE 150 MCG TABLET PO SCH (08:20)
[2022-11-24] MEDS: LISINOPRIL 20 MG TABLET PO SCH (08:20)
[2022-11-24] MEDS: VITAMIN B COMPLEX 1 CAPSULE PO SCH (08:21)
[2022-11-24] MEDS: GABAPENTIN 300 MG CAPSULE PO SCH ×3 (08:21→19:54)
[2022-11-24] MEDS: DOCUSATE SODIUM 100 MG CAPSULE PO SCH ×2 (08:21→19:53)
[2022-11-24] MEDS: VITAMIN D3 125 MCG TABLET PO SCH (08:21)
[2022-11-24] MEDS: TAMSULOSIN 0.4 MG CAPSULE PO SCH (08:21)
[2022-11-24] MEDS: amLODIPine 10 MG TABLET PO SCH (08:21)
--- NOTE | 2022-11-24 16:19 | Internal Med Progress Note ---
SUBJECTIVE Subjective Patient information: Note initiated : 11/24/22 at 4:14 pm Service Date, if different from initiated Date: [] Patient: Timmy Kwon 82 y/o M admitted on 11/23/22 for fall. Chief Complaint: [] Interval history: 82 yo male with HTN, hypothyroid, HLD, prior TIA and ASD on warfarin, prostate cancer s/p radiation. He tripped and fell while in his driveway. Workup in the ER noted a left intertrochanteric hip fracture. Nov 24, I assumed care from the prior hospitalist. Pt is s/p ORIF repair of left hip fracture. Will have PT/OT evaluation to establish d/c plan. Pt had francois placed overnight for urinary retention. 2.5 L was obtained. Constitutional Vitals: Vital Signs Temp Pulse Resp BP Pulse Ox O2 Del Method O2 Flow Rate 97.3 F 87 20 151/83 95 Nasal Cannula 1 11/24/22 11:28 11/24/22 11:28 11/24/22 11:28 11/24/22 11:28 11/24/22 11:28 11/24/22 11:28 11/24/22 11:28 Period Temp Pulse Resp BP Sys/Sanders Pulse Ox O2 Del Method O2 Flow Rate Last 24 Hr 97.3 F-98.7 F 74-87 16-20 133-151/73-85 94-96 Nasal Cannula- Room Air 1-3 Intake and Output 11/24/22 11/24/22 11/24/22 03:59 11:59 19:59 Intake Total 1952 935 Output Total 500 5650 Balance 1453 -4715 Weight 91.081 kg Intake & Output: Intake & Output 11/24/22 11/24/22 11/24/22 03:59 11:59 19:59 Intake Total 1952 935 Output Total 500 5650 Balance 1453 -4715 Weight 91.081 kg Intake: IV 953 935 Sodium Chloride 0.9% 1,000 ml @ 953 935 100 mls/hr IV .Q10H MIGUEL A Rx#: [id number] Oral 1000 Output: Urine Catheter Amount 500 5650 Uretheral (Francois) 2650 Other: Urine Appearance Clear Clear Uretheral (Francois) Clear Urine Color Dark Yellow Yellow Uretheral (Francois) Dark Yellow Urine Odor Normal General appearance: average body habitus and no acute distress Head Head exam: Present atraumatic, normal inspection and normocephalic ENT ENT exam: Present mucous membranes moist Respiratory Respiratory exam: Present normal respiratory exam and CTAB Cardiovascular Cardiovascular exam: Present normal rate and rhythm GI/Abdominal GI/Abdominal exam: Present normal bowel sounds and soft; Absent distended Extremities Exam Additional comments: post op left hip Neurological Exam Neurological exam: Present CN II-XII intact and oriented X3 OBJ DATA Labs 11/24/22 05:23 11/23/22 11:28 Labs: Abnormal Lab Results 11/24/22 11/23/22 11/23/22 05: 11:28 11:28 WBC 16.1 H RBC 3.44 L Hgb 10.2 L 11.1 L Hct 31.0 L 34.5 L MCV 100.3 H Immature Gran % (Auto) 0.7 H Neut % (Auto) 92.7 H Lymph % (Auto) 2.9 L Lymph # (Auto) 0.47 L Immature Gran # 0.11 H Absolute Neutrophils 14.94 H POC PT PT POC INR INR Sodium 130 L Carbon Dioxide 18 L BUN 42 H Creatinine 2.3 H Glucose 120 H Calcium 8.5 L Urine Appearance Ur Leukocyte Esterase Urine RBC Urine WBC Urine Bacteria Urine Mucus 11/23/22 11/22/22 11/22/22 05:03 21:19 18:14 WBC RBC Hgb Hct MCV Immature Gran % (Auto) Neut % (Auto) Lymph % (Auto) Lymph # (Auto) Immature Gran # Absolute Neutrophils POC PT 26.7 H PT 23.5 H POC INR 2.3 H INR 2.0 H Sodium Carbon Dioxide BUN Creatinine Glucose Calcium Urine Appearance Cloudy A Ur Leukocyte Esterase 75 A Urine RBC 41 H Urine WBC 22 H Urine Bacteria Few A Urine Mucus Few A 11/22/22 11/22/22 18:09 18:09 WBC 12.5 H RBC 3.83 L Hgb 12.6 L Hct 37.3 L MCV Immature Gran % (Auto) 1.0 H Neut % (Auto) 85.9 H Lymph % (Auto) 5.6 L Lymph # (Auto) 0.70 L Immature Gran # 0.13 H Absolute Neutrophils 10.76 H POC PT PT POC INR INR Sodium 132 L Carbon Dioxide BUN 35 H Creatinine 1.5 H Glucose Calcium Urine Appearance Ur Leukocyte Esterase Urine RBC Urine WBC Urine Bacteria Urine Mucus Meds: Medications Acetaminophen (Acetaminophen 325 Mg Tablet) 650 mg PO Q6HP PRN; Protocol PRN Reason: Per Pain Protocol/Fever > 101 Hydrocodone Bitart/Acetaminophen (Hydrocodone/Apap 7.5/325mg Tablet) 0 tab PO Q4HP PRN; Protocol PRN Reason: Per Pain Protocol Last Admin: 11/23/22 20:47 Dose: 1 tab Albuterol/Ipratropium (Ipratropium/Albuterol 3 Ml Ampul.Neb) 3 ml NEB Q4HRT PRN PRN Reason: Wheezing Amlodipine Besylate (Amlodipine 10 Mg Tablet) 10 mg PO QDAY [facility] Last Admin: 11/24/22 08:21 Dose: 10 mg Atorvastatin Calcium (Atorvastatin 20 Mg Tablet) 20 mg PO [facility] Last Admin: 11/23/22 20:46 Dose: 20 mg Bisacodyl (Bisacodyl 10 Mg Supp.Rect) 10 mg OR Q2-3DAYS PRN PRN Reason: Constipation Docusate Sodium (Docusate Sodium 100 Mg Capsule) 100 mg PO BID [facility] Last Admin: 11/24/22 08:21 Dose: 100 mg Gabapentin (Gabapentin 300 Mg Capsule) 300 mg PO TID [facility] Last Admin: 11/24/22 14:53 Dose: 300 mg Levothyroxine Sodium (Levothyroxine 150 Mcg Tablet) 150 mcg PO ACB [facility] Last Admin: 11/24/22 08:20 Dose: 150 mcg Lisinopril (Lisinopril 20 Mg Tablet) 20 mg PO DAILY [facility] Last Admin: 11/24/22 08:20 Dose: 20 mg Magnesium Hydroxide (Magnesium Hydroxide 30 Ml Oral.Susp) 30 ml PO BIDP PRN PRN Reason: Constipation Morphine Sulfate (Morphine 4 Mg/Ml Vial) 0 mg IV Q1HP PRN; Protocol PRN Reason: Per Pain Protocol Omeprazole (Omeprazole 20 Mg Capsule) 40 mg PO DAILYP PRN PRN Reason: Indigestion Ondansetron HCl (Ondansetron 4 Mg/2 Ml Vial) 4 mg IV Q6HP PRN PRN Reason: Nausea And Vomiting Polyethylene Glycol (Polyethylene Glycol 3350 17 Gm Packet) 17 gm PO DAILYP PRN PRN Reason: Constipation Senna (Sennosides 1 Tablet) 2 tab PO [facility] Last Admin: 11/23/22 20:46 Dose: 2 tab Sodium Biphosphate/Sodium Phosphate (Fleets Adult Enema) 1 dose OR Q3-4DAYS PRN PRN Reason: Constipation Sodium Chloride (0.9 % Sodium Chloride 10 Ml Syringe) 10 ml IV Q12 [facility] Last Admin: 11/24/22 08:22 Dose: Not Given Sodium Chloride (0.9 % Sodium Chloride 10 Ml Syringe) 10 ml IV Q8 [facility] Last Admin: 11/24/22 14:53 Dose: 10 ml Tamsulosin HCl (Tamsulosin 0.4 Mg Capsule) 0.4 mg PO DAILY [facility] Last Admin: 11/24/22 08:21 Dose: 0.4 mg Trazodone HCl (Trazodone Hcl 50 Mg Tablet) 25 mg PO [facility] PRN PRN Reason: Insomnia Vitamin B Complex (Vitamin B Complex 1 Capsule) 1 cap PO DAILY [facility] Last Admin: 11/24/22 08:21 Dose: 1 cap Vitamin D (Vitamin D3 125 Mcg Tablet) 125 mcg PO DAILY [facility] Last Admin: 11/24/22 08:21 Dose: 125 mcg A/P Assessment and plan (1) Closed left hip fracture: Assessment and plan: - s/p ORIF Nov 23 Dr. Gavin - PT/OT - rehab? Status: Acute (2) Urinary retention: Assessment and plan: - francois placed - Urology follow up Status: Acute (3) TIA (transient ischemic attack): Assessment and plan: - reportedly has ASD on wafarin - resume wafarin tomorrow Status: Acute Qualifiers: Transient cerebral ischemia type: unspecified Qualified Code(s): G45.9 - Transient cerebral ischemic attack, unspecified Time Spent With Patient Time: Total time spent is greater than 50% in coordination of care (as documented) at patient's floor/unit and/or counseling patient: Subsequent: Total time with patient: 25 - 34 minutes QUALITY VTE Deep Vein Thrombosis/Pulmonary Embolism Present on Admission: No
[2022-11-24] MEDS: SENNOSIDES 1 TABLET PO SCH (19:53)
[2022-11-24] MEDS: ATORVASTATIN 20 MG TABLET PO SCH (19:53)
[2022-11-25] MEDS: 0.9 % SODIUM CHLORIDE 10 ML SYRINGE IV SCH ×5 (03:38→15:34)
[2022-11-25 07:16] LABS: Basophils # (Auto) 0.02 K/mcL (0.00-0.30); Basophils % (Auto) 0.2 % (0.0-2.0); Eosinophils # (Auto) 0.07 K/mcL (0.00-0.70); Eosinophils % (Auto) 0.6 % (0.0-7.0); Hematocrit 31.1 % (40.1-51.0); Hemoglobin 10.2 g/dL (13.7-17.5); Lymphocytes # (Auto) 1.09 K/mcL (1.50-4.80); Lymphocytes % (Auto) 9.6 % (15.5-49.0); Mean Cell Volume 98.1 fL (80.0-100.0); Mean Corpuscular HGB Conc 32.8 g/dL (31.0-36.0); Mean Platelet Volume 10.9 fL (8.8-12.5); Monocytes # (Auto) 1.23 K/mcL (0.10-0.90); Monocytes % (Auto) 10.8 % (1.0-12.0); Platelet Count 222 K/mcL (140-440); RBC 3.17 M/mcL (4.63-6.08); Red Cell Distribution Width 12.9 % (11.5-14.5); WBC 11.4 K/mcL (4.5-11.0)
[2022-11-25 07:28] LABS: INR 1.6 (0.9-1.1); Prothrombin Time 20.1 sec (11.9-14.5)
[2022-11-25 07:51] LABS: Blood Urea Nitrogen 46 mg/dL (8-23); Calcium 8.5 mg/dL (8.6-10.4); Carbon Dioxide 24 mmol/L (22-30); Chloride 105 mmol/L (96-108); Glomerular Filtration Rate 39; Glucose 77 mg/dL (70-105)
[2022-11-25] MEDS: DOCUSATE SODIUM 100 MG CAPSULE PO SCH ×2 (08:50→21:17)
[2022-11-25] MEDS: amLODIPine 10 MG TABLET PO SCH (08:50)
[2022-11-25] MEDS: VITAMIN B COMPLEX 1 CAPSULE PO SCH (08:50)
[2022-11-25] MEDS: TAMSULOSIN 0.4 MG CAPSULE PO SCH (08:50)
[2022-11-25] MEDS: GABAPENTIN 300 MG CAPSULE PO SCH ×3 (08:50→21:17)
[2022-11-25] MEDS: VITAMIN D3 125 MCG TABLET PO SCH (08:50)
[2022-11-25] MEDS: LEVOTHYROXINE 150 MCG TABLET PO SCH (08:50)
[2022-11-25] MEDS: LISINOPRIL 20 MG TABLET PO SCH (08:50)
[2022-11-25] MEDS: 0.9 % SODIUM CHLORIDE 1,000 ML IV SCH ×2 (08:55→18:30)
--- NOTE | 2022-11-25 08:56 | Orthopedic Progress Note ---
SUBJECTIVE Subjective Patient information: Note initiated : 11/25/22 at 8:51 am Service Date, if different from initiated Date: [] Patient: Timmy Kwon 82 y/o M admitted on 11/23/22 for fall. Chief Complaint: [] Interval history: POD 2 s/p left hip CMN of intertrochanteric hip fracture. Patient doing well and minimal pain. Able to walk with PT and walker short distances without pain. Constitutional Vitals: Vital Signs Temp Pulse Resp BP Pulse Ox O2 Del Method O2 Flow Rate 98.2 F 76 18 135/85 96 Room Air 2 11/25/22 07:54 11/25/22 07:54 11/25/22 07:54 11/25/22 07:54 11/25/22 07:54 11/25/22 07:54 11/24/22 23:05 Period Temp Pulse Resp BP Sys/Sanders Pulse Ox O2 Del Method O2 Flow Rate Last 24 Hr 97.3 F-98.6 F 76-88 16-22 122-151/70-89 93-96 Nasal Cannula- Room Air 1-2 Intake and Output 11/24/22 11/25/22 11/25/22 19:59 03:59 11:59 Intake Total 1000 Output Total 4850 800 1350 Balance -3850 -800 -1350 Weight 215 lb 9 oz Intake & Output: Intake & Output 11/24/22 11/25/22 11/25/22 19:59 03:59 11:59 Intake Total 1000 Output Total 4850 800 1350 Balance -3850 -800 -1350 Weight 215 lb 9 oz Intake: IV 1000 Sodium Chloride 0.9% 1,000 ml @ 1000 100 mls/hr IV .Q10H [facility] Rx#: [id number] Output: Urine Catheter Amount [phone] Void Amount 3650 Other: Urine Appearance Hematuria Small Blood Clots Cloudy Small Blood Clots Small Blood Clots Uretheral (Bravo) Hematuria Small Blood Clots Urine Color Dark Red Medium Red Light Red Medium Red Uretheral (Bravo) Dark Red Urine Odor Normal Normal Normal Uretheral (Bravo) Normal Additional findings Additional findings: Exam of LLE dressings have small quarter sized area of bloody drainage, NVI, no calf pain. OBJ DATA Labs 11/25/22 05:14 11/25/22 05:14 Labs: Abnormal Lab Results 11/25/22 11/25/22 11/25/22 05:14 05:14 05:14 WBC 11.4 H RBC 3.17 L Hgb 10.2 L Hct 31.1 L MCV Immature Gran % (Auto) 0.8 H Neut % (Auto) Lymph % (Auto) 9.6 L Lymph # (Auto) 1.09 L [place] # (Auto) 1.23 H Immature Gran # 0.09 H Absolute Neutrophils 8.85 H POC PT PT 20.1 H POC INR INR 1.6 H Sodium Carbon Dioxide BUN 46 H Creatinine 1.6 H Glucose Calcium 8.5 L Urine Appearance Ur Leukocyte Esterase Urine RBC Urine WBC Urine Bacteria Urine Mucus 11/24/22 11/23/22 11/23/22 05:23 11:28 11:28 WBC 16.1 H RBC 3.44 L Hgb 10.2 L 11.1 L Hct 31.0 L 34.5 L MCV 100.3 H Immature Gran % (Auto) 0.7 H Neut % (Auto) 92.7 H Lymph % (Auto) 2.9 L Lymph # (Auto) 0.47 L [place] # (Auto) Immature Gran # 0.11 H Absolute Neutrophils 14.94 H POC PT PT POC INR INR Sodium 130 L Carbon Dioxide 18 L BUN 42 H Creatinine 2.3 H Glucose 120 H Calcium 8.5 L Urine Appearance Ur Leukocyte Esterase Urine RBC Urine WBC Urine Bacteria Urine Mucus 11/23/22 11/22/22 11/22/22 05:03 21:19 18:14 WBC RBC Hgb Hct MCV Immature Gran % (Auto) Neut % (Auto) Lymph % (Auto) Lymph # (Auto) [place] # (Auto) Immature Gran # Absolute Neutrophils POC PT 26.7 H PT 23.5 H POC INR 2.3 H INR 2.0 H Sodium Carbon Dioxide BUN Creatinine Glucose Calcium Urine Appearance Cloudy A Ur Leukocyte Esterase 75 A Urine RBC 41 H Urine WBC 22 H Urine Bacteria Few A Urine Mucus Few A 11/22/22 11/22/22 18:09 18:09 WBC 12.5 H RBC 3.83 L Hgb 12.6 L Hct 37.3 L MCV Immature Gran % (Auto) 1.0 H Neut % (Auto) 85.9 H Lymph % (Auto) 5.6 L Lymph # (Auto) 0.70 L [place] # (Auto) Immature Gran # 0.13 H Absolute Neutrophils 10.76 H POC PT PT POC INR INR Sodium 132 L Carbon Dioxide BUN 35 H Creatinine 1.5 H Glucose Calcium Urine Appearance Ur Leukocyte Esterase Urine RBC Urine WBC Urine Bacteria Urine Mucus Meds: Medications Acetaminophen (Acetaminophen 325 Mg Tablet) 650 mg PO Q6HP PRN; Protocol PRN Reason: Per Pain Protocol/Fever > 101 Hydrocodone Bitart/Acetaminophen (Hydrocodone/Apap 7.5/325mg Tablet) 0 tab PO Q4HP PRN; Protocol PRN Reason: Per Pain Protocol Last Admin: 11/23/22 20:47 Dose: 1 tab Albuterol/Ipratropium (Ipratropium/Albuterol 3 Ml Ampul.Neb) 3 ml NEB Q4HRT PRN PRN Reason: Wheezing Amlodipine Besylate (Amlodipine 10 Mg Tablet) 10 mg PO QDAY [facility] Last Admin: 11/25/22 08:50 Dose: 10 mg Atorvastatin Calcium (Atorvastatin 20 Mg Tablet) 20 mg PO HS [facility] Last Admin: 11/24/22 19:53 Dose: 20 mg Bisacodyl (Bisacodyl 10 Mg Supp.Rect) 10 mg [place] Q2-3DAYS PRN PRN Reason: Constipation Docusate Sodium (Docusate Sodium 100 Mg Capsule) 100 mg PO BID [facility] Last Admin: 11/25/22 08:50 Dose: 100 mg Gabapentin (Gabapentin 300 Mg Capsule) 300 mg PO TID [facility] Last Admin: 11/25/22 08:50 Dose: 300 mg Sodium Chloride (Sodium Chloride 0.9%) 1,000 mls @ 100 mls/hr IV .Q10H [facility] Levothyroxine Sodium (Levothyroxine 150 Mcg Tablet) 150 mcg PO ACB [facility] Last Admin: 11/25/22 08:50 Dose: 150 mcg Lisinopril (Lisinopril 20 Mg Tablet) 20 mg PO DAILY [facility] Last Admin: 11/25/22 08:50 Dose: 20 mg Magnesium Hydroxide (Magnesium Hydroxide 30 Ml Oral.Susp) 30 ml PO BIDP PRN PRN Reason: Constipation Morphine Sulfate (Morphine 4 Mg/Ml Vial) 0 mg IV Q1HP PRN; Protocol PRN Reason: Per Pain Protocol Omeprazole (Omeprazole 20 Mg Capsule) 40 mg PO DAILYP PRN PRN Reason: Indigestion Ondansetron HCl (Ondansetron 4 Mg/2 Ml Vial) 4 mg IV Q6HP PRN PRN Reason: Nausea And Vomiting Polyethylene Glycol (Polyethylene Glycol 3350 17 Gm Packet) 17 gm PO DAILYP PRN PRN Reason: Constipation Senna (Sennosides 1 Tablet) 2 tab PO HS [facility] Last Admin: 11/24/22 19:53 Dose: 2 tab Sodium Biphosphate/Sodium Phosphate (Fleets Adult Enema) 1 dose [place] Q3-4DAYS PRN PRN Reason: Constipation Sodium Chloride (0.9 % Sodium Chloride 10 Ml Syringe) 10 ml IV Q12 [facility] Last Admin: 11/24/22 08:22 Dose: Not Given Sodium Chloride (0.9 % Sodium Chloride 10 Ml Syringe) 10 ml IV Q8 [facility] Last Admin: 11/25/22 03:38 Dose: Not Given Tamsulosin HCl (Tamsulosin 0.4 Mg Capsule) 0.4 mg PO DAILY [facility] Last Admin: 11/25/22 08:50 Dose: 0.4 mg Trazodone HCl (Trazodone Hcl 50 Mg Tablet) 25 mg PO HSP PRN PRN Reason: Insomnia Vitamin B Complex (Vitamin B Complex 1 Capsule) 1 cap PO DAILY [facility] Last Admin: 11/25/22 08:50 Dose: 1 cap Vitamin D (Vitamin D3 125 Mcg Tablet) 125 mcg PO DAILY [facility] Last Admin: 11/25/22 08:50 Dose: 125 mcg A/P Assessment and plan (1) Fracture, intertrochanteric, left femur: Plan: POD 2 s/p left hip CMN of intertroch fracture 1. Dispo per hospitalist likely to SNF 2. Weight bearing as tolerated 3. Follow up with Jordi Herrera at [facility] in 10-14 days Status: Acute Time Spent With Patient Time: Total time spent is greater than 50% in coordination of care (as documented) at patient's floor/unit and/or counseling patient:
--- NOTE | 2022-11-25 11:46 | Internal Med Progress Note ---
SUBJECTIVE Subjective Patient information: Note initiated : 11/25/22 at 11:42 am Service Date, if different from initiated Date: [] Patient: Timmy Kwon 82 y/o M admitted on 11/23/22 for fall. Chief Complaint: [] Interval history: 82 yo male with HTN, hypothyroid, HLD, prior TIA and ASD on warfarin, prostate cancer s/p radiation. He tripped and fell while in his driveway. Workup in the ER noted a left intertrochanteric hip fracture. Nov 24, I assumed care from the prior hospitalist. Pt is s/p ORIF repair of left hip fracture. Will have PT/OT evaluation to establish d/c plan. Pt had francois placed overnight for urinary retention. 2.5 L was obtained. Nov 25, WBC improved to 11, Hgb stable. Cr improved to 1.6 from 2.3 but BUN in creased to 46. Urine output brisk overnight. Will restart IVF. Dispo is to rehab. Constitutional Vitals: Vital Signs Temp Pulse Resp BP Pulse Ox O2 Del Method O2 Flow Rate 98.2 F 76 18 135/85 96 Room Air 2 11/25/22 07:54 11/25/22 07:54 11/25/22 07:54 11/25/22 07:54 11/25/22 07:54 11/25/22 07:54 11/24/22 23:05 Period Temp Pulse Resp BP Sys/Sanders Pulse Ox O2 Del Method O2 Flow Rate Last 24 Hr 98.2 F-98.6 F 76-88 16-22 122-144/70-89 93-96 Nasal Cannula- Room Air 1-2 Intake and Output 11/24/22 11/25/22 11/25/22 19:59 03:59 11:59 Intake Total 1000 Output Total 4850 800 1350 Balance -3850 -800 -1350 Weight 97.778 kg Intake & Output: Intake & Output 11/24/22 11/25/22 11/25/22 19:59 03:59 11:59 Intake Total 1000 Output Total 4850 800 1350 Balance -3850 -800 -1350 Weight 97.778 kg Intake: IV 1000 Sodium Chloride 0.9% 1,000 ml @ 1000 100 mls/hr IV .Q10H [facility] Rx#: [id number] Output: Urine Catheter Amount [phone] Void Amount 3650 Other: Urine Appearance Hematuria Small Blood Clots Cloudy Small Blood Clots Small Blood Clots Uretheral (Francois) Hematuria Small Blood Clots Urine Color Dark Red Medium Red Light Red Medium Red Uretheral (Francois) Dark Red Urine Odor Normal Normal Normal Uretheral (Francois) Normal General appearance: no acute distress Head Head exam: Present atraumatic, normal inspection and normocephalic ENT ENT exam: Present mucous membranes moist Respiratory Respiratory exam: Present normal respiratory exam and CTAB Cardiovascular Cardiovascular exam: Present normal rate and rhythm GI/Abdominal GI/Abdominal exam: Present normal bowel sounds and soft Neurological Exam Neurological exam: Present CN II-XII intact and oriented X3 OBJ DATA Labs 11/25/22 05:14 11/25/22 05:14 Labs: Abnormal Lab Results 11/25/22 11/25/22 11/25/22 05:14 05:14 05:14 WBC 11.4 H RBC 3.17 L Hgb 10.2 L Hct 31.1 L MCV Immature Gran % (Auto) 0.8 H Neut % (Auto) Lymph % (Auto) 9.6 L Lymph # (Auto) 1.09 L [place] # (Auto) 1.23 H Immature Gran # 0.09 H Absolute Neutrophils 8.85 H POC PT PT 20.1 H POC INR INR 1.6 H Sodium Carbon Dioxide BUN 46 H Creatinine 1.6 H Glucose Calcium 8.5 L Urine Appearance Ur Leukocyte Esterase Urine RBC Urine WBC Urine Bacteria Urine Mucus 11/24/22 11/23/22 11/23/22 05:23 11:28 11:28 WBC 16.1 H RBC 3.44 L Hgb 10.2 L 11.1 L Hct 31.0 L 34.5 L MCV 100.3 H Immature Gran % (Auto) 0.7 H Neut % (Auto) 92.7 H Lymph % (Auto) 2.9 L Lymph # (Auto) 0.47 L [place] # (Auto) Immature Gran # 0.11 H Absolute Neutrophils 14.94 H POC PT PT POC INR INR Sodium 130 L Carbon Dioxide 18 L BUN 42 H Creatinine 2.3 H Glucose 120 H Calcium 8.5 L Urine Appearance Ur Leukocyte Esterase Urine RBC Urine WBC Urine Bacteria Urine Mucus 11/23/22 11/22/22 11/22/22 05:03 21:19 18:14 WBC RBC Hgb Hct MCV Immature Gran % (Auto) Neut % (Auto) Lymph % (Auto) Lymph # (Auto) [place] # (Auto) Immature Gran # Absolute Neutrophils POC PT 26.7 H PT 23.5 H POC INR 2.3 H INR 2.0 H Sodium Carbon Dioxide BUN Creatinine Glucose Calcium Urine Appearance Cloudy A Ur Leukocyte Esterase 75 A Urine RBC 41 H Urine WBC 22 H Urine Bacteria Few A Urine Mucus Few A 11/22/22 11/22/22 18:09 18:09 WBC 12.5 H RBC 3.83 L Hgb 12.6 L Hct 37.3 L MCV Immature Gran % (Auto) 1.0 H Neut % (Auto) 85.9 H Lymph % (Auto) 5.6 L Lymph # (Auto) 0.70 L [place] # (Auto) Immature Gran # 0.13 H Absolute Neutrophils 10.76 H POC PT PT POC INR INR Sodium 132 L Carbon Dioxide BUN 35 H Creatinine 1.5 H Glucose Calcium Urine Appearance Ur Leukocyte Esterase Urine RBC Urine WBC Urine Bacteria Urine Mucus Meds: Medications Acetaminophen (Acetaminophen 325 Mg Tablet) 650 mg PO Q6HP PRN; Protocol PRN Reason: Per Pain Protocol/Fever > 101 Hydrocodone Bitart/Acetaminophen (Hydrocodone/Apap 7.5/325mg Tablet) 0 tab PO Q4HP PRN; Protocol PRN Reason: Per Pain Protocol Last Admin: 11/23/22 20:47 Dose: 1 tab Albuterol/Ipratropium (Ipratropium/Albuterol 3 Ml Ampul.Neb) 3 ml NEB Q4HRT PRN PRN Reason: Wheezing Amlodipine Besylate (Amlodipine 10 Mg Tablet) 10 mg PO QDAY [facility] Last Admin: 11/25/22 08:50 Dose: 10 mg Atorvastatin Calcium (Atorvastatin 20 Mg Tablet) 20 mg PO HS [facility] Last Admin: 11/24/22 19:53 Dose: 20 mg Bisacodyl (Bisacodyl 10 Mg Supp.Rect) 10 mg [place] Q2-3DAYS PRN PRN Reason: Constipation Docusate Sodium (Docusate Sodium 100 Mg Capsule) 100 mg PO BID [facility] Last Admin: 11/25/22 08:50 Dose: 100 mg Gabapentin (Gabapentin 300 Mg Capsule) 300 mg PO TID [facility] Last Admin: 11/25/22 08:50 Dose: 300 mg Sodium Chloride (Sodium Chloride 0.9%) 1,000 mls @ 100 mls/hr IV .Q10H [facility] Last Admin: 11/25/22 08:55 Dose: 100 mls/hr Levothyroxine Sodium (Levothyroxine 150 Mcg Tablet) 150 mcg PO ACB [facility] Last Admin: 11/25/22 08:50 Dose: 150 mcg Lisinopril (Lisinopril 20 Mg Tablet) 20 mg PO DAILY [facility] Last Admin: 11/25/22 08:50 Dose: 20 mg Magnesium Hydroxide (Magnesium Hydroxide 30 Ml Oral.Susp) 30 ml PO BIDP PRN PRN Reason: Constipation Morphine Sulfate (Morphine 4 Mg/Ml Vial) 0 mg IV Q1HP PRN; Protocol PRN Reason: Per Pain Protocol Omeprazole (Omeprazole 20 Mg Capsule) 40 mg PO DAILYP PRN PRN Reason: Indigestion Ondansetron HCl (Ondansetron 4 Mg/2 Ml Vial) 4 mg IV Q6HP PRN PRN Reason: Nausea And Vomiting Polyethylene Glycol (Polyethylene Glycol 3350 17 Gm Packet) 17 gm PO DAILYP PRN PRN Reason: Constipation Senna (Sennosides 1 Tablet) 2 tab PO HS [facility] Last Admin: 11/24/22 19:53 Dose: 2 tab Sodium Biphosphate/Sodium Phosphate (Fleets Adult Enema) 1 dose [place] Q3-4DAYS PRN PRN Reason: Constipation Sodium Chloride (0.9 % Sodium Chloride 10 Ml Syringe) 10 ml IV Q12 [facility] Last Admin: 11/25/22 09:00 Dose: Not Given Sodium Chloride (0.9 % Sodium Chloride 10 Ml Syringe) 10 ml IV Q8 [facility] Last Admin: 11/25/22 08:59 Dose: 10 ml Tamsulosin HCl (Tamsulosin 0.4 Mg Capsule) 0.4 mg PO DAILY [facility] Last Admin: 11/25/22 08:50 Dose: 0.4 mg Trazodone HCl (Trazodone Hcl 50 Mg Tablet) 25 mg PO HSP PRN PRN Reason: Insomnia Vitamin B Complex (Vitamin B Complex 1 Capsule) 1 cap PO DAILY [facility] Last Admin: 11/25/22 08:50 Dose: 1 cap Vitamin D (Vitamin D3 125 Mcg Tablet) 125 mcg PO DAILY [facility] Last Admin: 11/25/22 08:50 Dose: 125 mcg A/P Assessment and plan (1) Closed left hip fracture: Assessment and plan: - s/p ORIF - will need rehab Status: Acute (2) Urinary retention: Assessment and plan: - continue Francois - will need outpatient Urology follow up - tamsulosin Status: Acute (3) TIA (transient ischemic attack): Assessment and plan: - patient reports known ASD, on warfarin - resume warfarin Status: Acute Qualifiers: Transient cerebral ischemia type: unspecified Qualified Code(s): G45.9 - Transient cerebral ischemic attack, unspecified Time Spent With Patient Time: Total time spent is greater than 50% in coordination of care (as documented) at patient's floor/unit and/or counseling patient: Subsequent: Total time with patient: Less than 25 minutes QUALITY VTE Deep Vein Thrombosis/Pulmonary Embolism Present on Admission: No
[2022-11-25] MEDS ORDERED: WARFARIN 2 MG TABLET PO ONE (14:00)
[2022-11-25] MEDS: SENNOSIDES 1 TABLET PO SCH (21:17)
[2022-11-25] MEDS: ATORVASTATIN 20 MG TABLET PO SCH (21:18)
[2022-11-26] MEDS: 0.9 % SODIUM CHLORIDE 10 ML SYRINGE IV SCH ×4 (00:33→08:26)
[2022-11-26] MEDS: 0.9 % SODIUM CHLORIDE 1,000 ML IV SCH (04:55)
[2022-11-26] MEDS: LEVOTHYROXINE 150 MCG TABLET PO SCH (07:33)
[2022-11-26 07:51] LABS: Hematocrit 30.5 % (40.1-51.0)
--- NOTE | 2022-11-26 08:10 | Discharge Summary ---
Discharge Provider Provider IMPORTANT FOLLOW-UP INFORMATION FOR PCP: Patient information: Note initiated : 11/26/22 at 8:06 am Service Date, if different from initiated Date: [] Patient: Timmy Kwon 82 y/o M admitted on 11/23/22 for fall. Chief Complaint: [] Date of admission: 11/23/22 10:40 Discharge date: 11/26/22 Primary care physician: Patric Juárez PA-C Admitting clinician: Jamal Goldstein Attending physician on admission: Jamal Goldstein Consults: 11/22/22 Consult to Physician [CONS] Stat Comment: HIP FRACTURE Consulting Provider: Gavin Whitman Reason For Exam: Physician to Consult Consult to Physician [CONS] Stat Comment: HIP FRACTURE Consulting Provider: Jamal Goldstein Reason For Exam: Physician to Consult Attending physician on discharge: karla prince md Discharging clinician: karla prince md COURSE Hospital Course Hospital course: 82 yo male with HTN, hypothyroid, HLD, prior TIA and ASD on warfarin, prostate cancer s/p radiation. He tripped and fell while in his driveway. Workup in the ER noted a left intertrochanteric hip fracture. Nov 24, I assumed care from the prior hospitalist. Pt is s/p ORIF repair of left hip fracture. Will have PT/OT evaluation to establish d/c plan. Pt had francois placed overnight for urinary retention. 2.5 L was obtained. Nov 25, WBC improved to 11, Hgb stable. Cr improved to 1.6 from 2.3 but BUN increased to 46. Urine output brisk overnight. Will restart IVF. Dispo is to rehab. Nov 26, discharged to rehab. Discharge diagnosis: hip fracture Time Spent with Patient Time attestation: Total time spent providing and/or coordinating discharge services: Time spent: Less than 30 minutes EXAM Constitutional Vitals: Temp Pulse Resp BP Pulse Ox O2 Del Method O2 Flow Rate 98.9 F 87 16 134/84 91 Room Air 2 11/26/22 03:20 11/26/22 03:20 11/26/22 07:47 11/26/22 03:20 11/26/22 07:47 11/26/22 07:47 11/24/22 23:05 General appearance: average body habitus Head Head exam: Present atraumatic, normal inspection and normocephalic ENT ENT exam: Present mucous membranes moist Respiratory Respiratory exam: Present normal respiratory exam and CTAB GI/Abdominal GI/Abdominal exam: Present normal bowel sounds and soft Neurological Exam Neurological exam: Present CN II-XII intact and oriented X3 Discharge Data Data Completed and Pending Labs on day of discharge: Labs from last 24 hours 11/26/22 11/26/22 06:09 06:09 Hgb 10.0 L Hct 30.5 L PT Pending INR Pending Discharge Plan Patient/Caregiver Discharge Instructions Activity: as per physical therapy Diet: Regular Diet Prescriptions: Continued amlodipine 10 mg tablet 10 mg PO QDAY Qty: 90 3RF atorvastatin 20 mg tablet See Rx Instructions .ROUTE .COMPLEX Qty: 90 3RF Dose Instruction: TAKE 1 TABLET BY MOUTH AT BEDTIME Rx Instructions: TAKE 1 TABLET BY MOUTH AT BEDTIME lisinopril-hydrochlorothiazide 20-12.5 mg tablet See Rx Instructions .ROUTE .COMPLEX Qty: 90 3RF Dose Instruction: TAKE 1 TABLET BY MOUTH DAILY Rx Instructions: TAKE 1 TABLET BY MOUTH DAILY levothyroxine 150 mcg tablet 150 mcg PO QDAY Qty: 90 3RF acyclovir 200 mg capsule See Rx Instructions .ROUTE .COMPLEX Qty: 90 3RF Dose Instruction: TAKE 1 CAPSULE BY MOUTH DAILY NEEDED FOR COLD SORES Rx Instructions: TAKE 1 CAPSULE BY MOUTH DAILY NEEDED FOR COLD SORES warfarin 4 mg tablet 4 mg PO QDAY Qty: 90 2RF Protocol: Dose Management Protocol Text: Patient Instructed to take: warfarin 4 mg (1 Tab) on , , , , , FR, SA Additional Instructions: per order of patric juárez aspirin 325 mg tablet,delayed release (DR/EC) 325 mg PO QDAY cholecalciferol (vitamin D3) 5,000 unit tablet 5,000 unit PO QDAY Rx Instructions: administer with meals vitamin B complex [B Complex-Vitamin B12] tablet 1 tab-cap PO QDAY coenzyme Q10 400 mg capsule 400 mg PO QDAY alpha lipioc acid 1 dose PO DAILY Patient Comments: 600mg daily gabapentin 100 mg capsule 300 mg PO TID omeprazole 40 mg capsule,delayed release(DR/EC) 40 mg PO QDAY PRN (Reason: Indigestion) Rx Instructions: swallow whole OR open & sprinkle contents over tbsp applesauce; swallow all immediately/do not chew Custom Foot Orthotic 1 dose PRN PRN (Reason: Pain) Rx Instructions: Please fit for custom foot orthotics Tamsulosin 0.4 mg PO DAILY Follow Up Plan Follow up with: Gavin Whitman MD [Physician] - Patric Juárez PA-C [Primary Care Provider] - Patient Disposition: Xfer SNF Prognosis: Fair Rehab Potential: Good I certify that the patient requires SNF services: Yes Overall status at discharge: patient is progressing back to baseline Discharge Orders: Discharge Order (Routine); Ordered 11/26/22 Ordered By: Karla ANAYA VTE Deep Vein Thrombosis/Pulmonary Embolism Present on Admission: No
[2022-11-26] MEDS: LISINOPRIL 20 MG TABLET PO SCH (08:25)
[2022-11-26] MEDS: GABAPENTIN 300 MG CAPSULE PO SCH (08:25)
[2022-11-26] MEDS: TAMSULOSIN 0.4 MG CAPSULE PO SCH (08:25)
[2022-11-26] MEDS: VITAMIN B COMPLEX 1 CAPSULE PO SCH (08:25)
[2022-11-26] MEDS: amLODIPine 10 MG TABLET PO SCH (08:25)
[2022-11-26] MEDS: DOCUSATE SODIUM 100 MG CAPSULE PO SCH (08:25)
[2022-11-26] MEDS: VITAMIN D3 125 MCG TABLET PO SCH (08:25)
[2022-11-26 08:28] LABS: INR 1.3 (0.9-1.1); Prothrombin Time 16.6 sec (11.9-14.5)
== END 2022-11-26 10:00 | DRG 482 ==
LOC: ED 15:37 → MEDSUR 11-23 07:22 → SUR 11-23 07:22 → MEDSUR 11-23 10:40
PROVIDERS: ADMIT Orthopaedic Surgery; ATTEND Internal Medicine

== ENCOUNTER 2024-09-15 10:07 | Inpatient (IN) ==
[2024-09-15 11:24] LABS: Basophils # (Auto) 0.01 K/mcL (0.00-0.30); Basophils % (Auto) 0.1 % (0.0-2.0); Eosinophils # (Auto) 0.09 K/mcL (0.00-0.70); Eosinophils % (Auto) 0.7 % (0.0-7.0); Hematocrit 35.2 % (40.1-51.0); Hemoglobin 11.6 g/dL (13.7-17.5); Lymphocytes # (Auto) 0.48 K/mcL (1.50-4.80); Lymphocytes % (Auto) 3.9 % (15.5-49.0); Mean Cell Volume 100.6 fL (80.0-100.0); Mean Platelet Volume 9.5 fL (8.8-12.5); Monocytes # (Auto) 0.85 K/mcL (0.10-0.90); Monocytes % (Auto) 6.9 % (1.0-12.0); Neutrophils % (Auto) 87.3 % (38.0-78.0); Platelet Count 369 K/mcL (140-440); Red Cell Distribution Width 12.1 % (11.5-14.5); WBC 12.3 K/mcL (4.5-11.0)
[2024-09-15 11:32] LABS: INR 1.6 (0.9-1.1); Prothrombin Time 19.9 sec (11.9-14.5)
[2024-09-15] MEDS: AZITHROMYCIN 500 MG in 0.9 % SODIUM CHLORIDE 250 ML IV ONE (11:37)
[2024-09-15 11:46] LABS: ALT/SGPT 46 U/L (<40); AST/SGOT 36 U/L (<40); Albumin 3.4 gm/dL (3.2-5.2); Albumin/Globulin Ratio 1.2 (1.0-2.3); Alkaline Phosphatase 126 U/L (39-117); Bilirubin,Total 0.5 mg/dL (0.1-1.0); Blood Urea Nitrogen 51 mg/dL (8-23); Carbon Dioxide 24 mmol/L (22-30); Chloride 95 mmol/L (96-108); Globulin 2.9 gm/dL (2.2-3.7); Glomerular Filtration Rate 45; Glucose 121 mg/dL (70-105); Sodium 133 mmol/L (133-145)
[2024-09-15] MEDS: 0.9 % SODIUM CHLORIDE 1,000 ML IV ONE (12:17)
[2024-09-15] MEDS: POTASSIUM CHLORIDE 20 MEQ in DEXTROSE 5% IN WATER 250 ML IV ONE (12:18)
[2024-09-15] MEDS: 0.9 % SODIUM CHLORIDE 250 ML IV SCH (12:18)
[2024-09-15 12:52] LABS: INR 1.7 (0.9-1.1)
[2024-09-15] MEDS: DOXYCYCLINE 100 MG in DEXTROSE 5% IN WATER 100 ML IV ONE (12:58)
[2024-09-15] MEDS: DEXTROSE 5% IN WATER 100 ML IV ONE (13:09)
[2024-09-15] MEDS ORDERED: ONDANSETRON 4 MG/2 ML VIAL IV PRN ×3 (15:18→18:30)
[2024-09-15] MEDS ORDERED: METOCLOPRAMIDE 10 MG/2 ML VIAL IV PRN (15:18)
[2024-09-15] MEDS ORDERED: MAGNESIUM SULFATE 2 GM/50 ML BAG IV PRN (15:18)
[2024-09-15] MEDS ORDERED: morphine 4 MG/ML VIAL IV PRN (15:18)
[2024-09-15] MEDS ORDERED: POTASSIUM CHLORIDE 20 MEQ TABLET PO PRN ×2 (15:18)
[2024-09-15] MEDS ORDERED: HYDROcodone/APAP 5/325MG TABLET PO PRN (15:18)
[2024-09-15] MEDS ORDERED: POTASSIUM CHLORIDE 40 MEQ in DEXTROSE 5% IN WATER 500 ML IV PRN (15:18)
[2024-09-15] MEDS ORDERED: ACETAMINOPHEN 325 MG TABLET PO PRN (15:18)
[2024-09-15] MEDS ORDERED: SENNOSIDES 1 TABLET PO PRN (15:18)
[2024-09-15 15:27] LABS: Blood Urea Nitrogen 47 mg/dL (8-23); Calcium 8.7 mg/dL (8.6-10.4); Carbon Dioxide 21 mmol/L (22-30); Chloride 98 mmol/L (96-108); Glomerular Filtration Rate 55; Glucose 108 mg/dL (70-105); Potassium 3.2 mmol/L (3.3-5.1); Sodium 134 mmol/L (133-145)
[2024-09-15] MEDS ORDERED: KETAMINE 50 MG/ML ML ONE (15:37)
[2024-09-15] MEDS ORDERED: fentaNYL 100 MCG/2 ML VIAL ONE ×2 (15:37→17:58)
[2024-09-15] MEDS ORDERED: PROPOFOL 200 MG/20 ML VIAL IV ONE (15:37)
[2024-09-15] MEDS ORDERED: ONDANSETRON 4 MG/2 ML VIAL ONE (15:38)
[2024-09-15] MEDS ORDERED: LIDOCAINE 2% PF 5 ML VIAL ONE (15:38)
[2024-09-15] MEDS ORDERED: TRANEXAMIC ACID 1,000 MG/10 ML VIAL ONE (15:38)
[2024-09-15] MEDS ORDERED: DEXAMETHASONE 10 MG/ML VIAL ONE (15:38)
[2024-09-15] MEDS ORDERED: GLYCOPYRROLATE 0.2 MG/ML VIAL IV ONE (15:38)
[2024-09-15] MEDS: 0.9 % SODIUM CHLORIDE 1,000 ML IV SCH (15:43)
[2024-09-15] MEDS: cefTRIAXone 1 GM VIAL IV SCH (15:46)
[2024-09-15] MEDS ORDERED: ROCURONIUM 10 MG/ML ML IV ONE (15:52)
[2024-09-15] MEDS ORDERED: SUGAMMADEX SODIUM 200 MG/2 ML VIAL IV ONE (15:52)
[2024-09-15] MEDS ORDERED: SUCCINYLCHOLINE 200 MG/10 ML VIAL IV ONE (15:53)
[2024-09-15] MEDS ORDERED: VASOPRESSIN 20 UNIT/ML VIAL ONE (16:22)
[2024-09-15] MEDS ORDERED: FAMOTIDINE/PF 20 MG/2 ML VIAL IV ONE (16:22)
[2024-09-15] MEDS ORDERED: PHENYLephrine 1 MG/10 ML SYRINGE (ANEST) ONE ×3 (16:30→18:01)
[2024-09-15] MEDS: LIDOCAINE 2% URO-JET 10 ML JEL.PF.APP UR ONE (17:20)
[2024-09-15] MEDS: ceFAZolin 2 GM in DEXTROSE 5% IN WATER 50 ML IV SCH (17:30)
[2024-09-15] MEDS ORDERED: ceFAZolin 1 GM VIAL ONE (17:30)
[2024-09-15] MEDS ORDERED: METHOCARBAMOL 1,000 MG/10 ML VIAL IV PRN (17:59)
[2024-09-15] MEDS ORDERED: HYDROmorphone 0.5 MG/0.5 ML SYRINGE IV PRN (17:59)
[2024-09-15] MEDS ORDERED: fentaNYL 100 MCG/2 ML VIAL IV PRN (17:59)
[2024-09-15] MEDS ORDERED: NALOXONE HCL 0.4 MG/ML VIAL IV PRN (17:59)
[2024-09-15] MEDS ORDERED: BENZOCAINE/MENTHOL 1 LOZENGE PO PRN ×2 (17:59→18:30)
[2024-09-15] MEDS ORDERED: LACTATED RINGERS 250 ML IV PRN (17:59)
[2024-09-15] MEDS ORDERED: IPRATROPIUM/ALBUTEROL 3 ML AMPUL.NEB NEB PRN (17:59)
[2024-09-15] MEDS ORDERED: BISACODYL 10 MG SUPP.RECT PR PRN (18:30)
[2024-09-15] MEDS ORDERED: HYDROmorphone 1 MG/ML SYRINGE IV PRN (18:30)
[2024-09-15] MEDS ORDERED: FLEETS ADULT 1 DOSE ENEMA PR PRN (18:30)
[2024-09-15] MEDS ORDERED: HYDROcodone/APAP 10/325MG TABLET PO PRN (18:30)
[2024-09-15] MEDS ORDERED: MAGNESIUM HYDROXIDE 30 ML ORAL.SUSP PO PRN (18:30)
[2024-09-15] MEDS ORDERED: POLYETHYLENE GLYCOL 3350 17 GM PACKET PO PRN (18:30)
[2024-09-15] MEDS: TRANEXAMIC ACID 1,000 MG/10 ML VIAL IV ONE (19:26)
[2024-09-15] MEDS: LACTATED RINGERS 1,000 ML IV SCH (20:06)
[2024-09-15] MEDS: TRANEXAMIC ACID 1,000 MG/10 ML VIAL ONE (20:07)
[2024-09-15] MEDS: ACETAMINOPHEN 1,000 MG/100 ML BAG IV ONE (20:23)
[2024-09-15] MEDS: ASPIRIN 81 MG TAB.CHEW CHEWED SCH (20:24)
[2024-09-15] MEDS: DOCUSATE SODIUM 100 MG CAPSULE PO SCH (20:24)
[2024-09-15] MEDS: SENNOSIDES 1 TABLET PO SCH (20:24)
[2024-09-15] MEDS ORDERED: METOPROLOL TARTRATE 5 MG/5 ML VIAL IV PRN (20:38)
[2024-09-15] MEDS ORDERED: DOCUSATE SODIUM 100 MG CAPSULE PO SCH (21:00)
[2024-09-15] MEDS ORDERED: TEMAZEPAM 15 MG CAPSULE PO PRN (21:00)
[2024-09-15] MEDS: 0.45 % SODIUM CHLORIDE 1,000 ML IV SCH (23:29)
[2024-09-15] MEDS: 0.9 % SODIUM CHLORIDE 10 ML SYRINGE IV SCH ×2 (23:33→23:34)
[2024-09-16] MEDS: ceFAZolin 1 GM VIAL IV SCH (01:33)
[2024-09-16 05:50] LABS: Basophils # (Auto) 0.01 K/mcL (0.00-0.30); Basophils % (Auto) 0.1 % (0.0-2.0); Eosinophils # (Auto) 0 K/mcL (0.00-0.70); Eosinophils % (Auto) 0 % (0.0-7.0); Hematocrit 30.8 % (40.1-51.0); Lymphocytes # (Auto) 0.61 K/mcL (1.50-4.80); Lymphocytes % (Auto) 4.2 % (15.5-49.0); Mean Cell Volume 103.7 fL (80.0-100.0); Mean Corpuscular HGB Conc 32.5 g/dL (31.0-36.0); Mean Platelet Volume 9.6 fL (8.8-12.5); Monocytes # (Auto) 0.32 K/mcL (0.10-0.90); Monocytes % (Auto) 2.2 % (1.0-12.0); Neutrophils % (Auto) 92.3 % (38.0-78.0); Platelet Count 328 K/mcL (140-440); RBC 2.97 M/mcL (4.63-6.08); Red Cell Distribution Width 12.1 % (11.5-14.5); WBC 14.5 K/mcL (4.5-11.0)
[2024-09-16 06:50] LABS: ALT/SGPT 35 U/L (<40); AST/SGOT 31 U/L (<40); Albumin 2.9 gm/dL (3.2-5.2); Albumin/Globulin Ratio 1.1 (1.0-2.3); Alkaline Phosphatase 116 U/L (39-117); Bilirubin,Direct < 0.2 mg/dL (0-0.3); Bilirubin,Total 0.3 mg/dL (0.1-1.0); Blood Urea Nitrogen 39 mg/dL (8-23); Calcium 8.3 mg/dL (8.6-10.4); Carbon Dioxide 21 mmol/L (22-30); Chloride 99 mmol/L (96-108); Globulin 2.7 gm/dL (2.2-3.7); Glomerular Filtration Rate 68; Glucose 150 mg/dL (70-105); Lactate Dehydrogenase 182 U/L (135-225); Phosphorous 3.9 mg/dL (2.5-4.5); Potassium 3.7 mmol/L (3.3-5.1); Sodium 133 mmol/L (133-145); Triglycerides 69 mg/dL (<150); Uric Acid 7.8 mg/dL (2.5-8.0)
[2024-09-16 07:41] LABS: INR 1.9 (0.9-1.1); Prothrombin Time 22.8 sec (11.9-14.5)
[2024-09-16] MEDS ORDERED: OMEPRAZOLE 20 MG CAPSULE PO PRN (08:33)
[2024-09-16] MEDS: AZITHROMYCIN 500 MG in 0.9 % SODIUM CHLORIDE 250 ML IV SCH (08:40)
[2024-09-16] MEDS: TAMSULOSIN 0.4 MG CAPSULE PO SCH (08:43)
[2024-09-16] MEDS: LEVOTHYROXINE 150 MCG TABLET PO SCH (08:43)
[2024-09-16] MEDS: GABAPENTIN 300 MG CAPSULE PO SCH (08:43)
[2024-09-16 09:19] LABS: Band Neutrophils % 10 % (0-10); Lymphocytes % 3 % (15-49); Myelocytes % 1 %; Platelet Estimate NORMAL (Normal); RBC Morphology NORMAL (Normal); Reactive Lymphocytes 1 % (0-2); Segmented Neutrophils % 85 % (38-78)
[2024-09-16 13:02] LABS: Appearance,Urine Clear (Clear); Bacteria,Urine Few /hpf (0); Bilirubin,Urine Negative (Negative); Color,Urine Yellow; Glucose,Urine (UA) Negative (Negative); Ketones,Urine Negative (Negative); Leukocyte Esterase,Urine Negative /uL (Negative); Nitrate,Urine Negative (Negative); PH,Urine 5.5 (5.0-9.0); Protein,Urine 30 mg/dL (Negative); Urine Blood Negative ery/mcL (Negative); Urine RBC 1 /hpf (0-3); Urine WBC 2 /hpf (0-4); Urobilinogen,Urine Normal
[2024-09-16] MEDS: ACETAMINOPHEN 325 MG TABLET PO PRN (22:14)
[2024-09-17] MEDS: IPRATROPIUM/ALBUTEROL 3 ML AMPUL.NEB NEB PRN (00:20)
[2024-09-17] MEDS: POLYETHYLENE GLYCOL 3350 17 GM PACKET PO PRN (05:57)
[2024-09-17 06:24] LABS: Hematocrit 30.1 % (40.1-51.0); Hemoglobin 9.9 g/dL (13.7-17.5); Mean Corpuscular HGB Conc 32.9 g/dL (31.0-36.0); Mean Platelet Volume 9.7 fL (8.8-12.5); Platelet Count 398 K/mcL (140-440); RBC 2.95 M/mcL (4.63-6.08); Red Cell Distribution Width 12.3 % (11.5-14.5); WBC 15.8 K/mcL (4.5-11.0)
[2024-09-17 06:39] LABS: ALT/SGPT 28 U/L (<40); AST/SGOT 36 U/L (<40); Albumin/Globulin Ratio 1.2 (1.0-2.3); Alkaline Phosphatase 135 U/L (39-117); Bilirubin,Direct < 0.2 mg/dL (0-0.3); Bilirubin,Total 0.2 mg/dL (0.1-1.0); Blood Urea Nitrogen 32 mg/dL (8-23); Calcium 8.7 mg/dL (8.6-10.4); Carbon Dioxide 24 mmol/L (22-30); Chloride 102 mmol/L (96-108); Globulin 2.6 gm/dL (2.2-3.7); Glomerular Filtration Rate 68; Glucose 120 mg/dL (70-105); Lactate Dehydrogenase 197 U/L (135-225); Phosphorous 2.4 mg/dL (2.5-4.5); Potassium 3.5 mmol/L (3.3-5.1); Sodium 136 mmol/L (133-145); Triglycerides 70 mg/dL (<150); Uric Acid 7.1 mg/dL (2.5-8.0)
[2024-09-17 06:50] LABS: Lymphocytes % 6 % (15-49); Monocytes % (Manual) 8 % (1-12); Myelocytes % 5 %; Platelet Estimate NORMAL (Normal); RBC Morphology NORMAL (Normal); Segmented Neutrophils % 81 % (38-78)
[2024-09-17 09:19] LABS: INR 1.8 (0.9-1.1)
[2024-09-17] MEDS: hydrALAZINE 10 MG TABLET PO SCH (10:41)
[2024-09-17] MEDS: guaiFENesin 600 MG TAB.SR.12H PO SCH (10:41)
[2024-09-17] MEDS: amLODIPine 5 MG TABLET PO SCH (10:41)
[2024-09-17] MEDS: WARFARIN 3 MG TABLET PO SCH (15:15)
[2024-09-17] MEDS: valACYclovir 500 MG TABLET PO SCH ×2 (15:16→15:17)
[2024-09-18 06:10] LABS: Basophils # (Auto) 0.01 K/mcL (0.00-0.30); Basophils % (Auto) 0.1 % (0.0-2.0); Eosinophils # (Auto) 0.15 K/mcL (0.00-0.70); Eosinophils % (Auto) 1.1 % (0.0-7.0); Hematocrit 31.4 % (40.1-51.0); Hemoglobin 10.2 g/dL (13.7-17.5); Lymphocytes # (Auto) 1.19 K/mcL (1.50-4.80); Lymphocytes % (Auto) 8.8 % (15.5-49.0); Mean Cell Volume 102.3 fL (80.0-100.0); Mean Corpuscular HGB Conc 32.5 g/dL (31.0-36.0); Mean Platelet Volume 9.5 fL (8.8-12.5); Monocytes # (Auto) 0.86 K/mcL (0.10-0.90); Monocytes % (Auto) 6.4 % (1.0-12.0); Neutrophils % (Auto) 71.2 % (38.0-78.0); Platelet Count 403 K/mcL (140-440); RBC 3.07 M/mcL (4.63-6.08); Red Cell Distribution Width 12.4 % (11.5-14.5); WBC 13.5 K/mcL (4.5-11.0)
[2024-09-18 06:33] LABS: INR 1.6 (0.9-1.1); Prothrombin Time 19.3 sec (11.9-14.5)
[2024-09-18 06:47] LABS: ALT/SGPT 35 U/L (<40); AST/SGOT 41 U/L (<40); Albumin 2.8 gm/dL (3.2-5.2); Albumin/Globulin Ratio 1.1 (1.0-2.3); Alkaline Phosphatase 139 U/L (39-117); Bilirubin,Direct < 0.2 mg/dL (0-0.3); Bilirubin,Total 0.3 mg/dL (0.1-1.0); Blood Urea Nitrogen 27 mg/dL (8-23); C-Reactive Protein 7.61 mg/dL (0.03-0.80); Calcium 8.6 mg/dL (8.6-10.4); Carbon Dioxide 24 mmol/L (22-30); Chloride 102 mmol/L (96-108); Globulin 2.5 gm/dL (2.2-3.7); Glomerular Filtration Rate 81; Glucose 97 mg/dL (70-105); Lactate Dehydrogenase 219 U/L (135-225); Phosphorous 2.4 mg/dL (2.5-4.5); Potassium 4.2 mmol/L (3.3-5.1); Sodium 135 mmol/L (133-145); Triglycerides 94 mg/dL (<150); Uric Acid 5.8 mg/dL (2.5-8.0)
[2024-09-18] MEDS: valACYclovir 500 MG TABLET PO SCH (08:01)
[2024-09-18 10:35] LABS: Appearance,Urine CLEAR (Clear); Bilirubin,Urine Negative (Negative); Color,Urine YELLOW; Glucose,Urine (UA) Negative (Negative); Ketones,Urine Negative (Negative); Leukocyte Esterase,Urine Negative /uL (Negative); Nitrate,Urine Negative (Negative); Protein,Urine Negative (Negative); Specific Gravity,Urine 1.015 (1.000-1.035); Urine Blood Negative (Negative); Urobilinogen,Urine Negative
[2024-09-18] MEDS: WARFARIN 2 MG TABLET PO SCH (14:31)
[2024-09-18] MEDS: LISINOPRIL 20 MG TABLET PO SCH (20:52)
[2024-09-19 06:10] LABS: Basophils # (Auto) 0.01 K/mcL (0.00-0.30); Basophils % (Auto) 0.1 % (0.0-2.0); Eosinophils # (Auto) 0.24 K/mcL (0.00-0.70); Eosinophils % (Auto) 1.8 % (0.0-7.0); Hematocrit 31.7 % (40.1-51.0); Hemoglobin 10.4 g/dL (13.7-17.5); Lymphocytes # (Auto) 0.97 K/mcL (1.50-4.80); Lymphocytes % (Auto) 7.4 % (15.5-49.0); Mean Cell Volume 101.6 fL (80.0-100.0); Mean Corpuscular HGB Conc 32.8 g/dL (31.0-36.0); Mean Platelet Volume 9.5 fL (8.8-12.5); Monocytes # (Auto) 0.75 K/mcL (0.10-0.90); Monocytes % (Auto) 5.7 % (1.0-12.0); Platelet Count 388 K/mcL (140-440); RBC 3.12 M/mcL (4.63-6.08); Red Cell Distribution Width 12.3 % (11.5-14.5); WBC 13.1 K/mcL (4.5-11.0)
[2024-09-19 06:23] LABS: INR 1.6 (0.9-1.1)
[2024-09-19 11:41] VITALS: TEMP 97.8; O2SAT 94
[2024-09-19] MEDS: WARFARIN 3 MG TABLET PO ONE (15:39)
== END 2024-09-19 12:45 | DRG 480 ==
LOC: ED 10:07 → MEDSUR 15:18
PROVIDERS: ADMIT Internal Medicine; ATTEND Internal Medicine